=== PATIENT | female | born 1935 | race Caucasian/White ===

== ENCOUNTER 2019-11-03 12:01 | Emergency (ER) | payer MEDICARE, SELFPAY ==
--- NOTE | ~2019-11-03 | XR_ITS ---
XR elbow LT min 3V DATE: 11/03/2019 12:34 INDICATION: Left elbow pain following fall TECHNIQUE: 4 views COMPARISON: None FINDINGS: There is no elevation of the anterior or posterior fat pads to suggest elbow joint effusion . There is mild spurring of the radial head, but no definite fracture of the radial head or neck or oth er elbow fracture or dislocation. IMPRESSION: Degenerative change at the left elbow joint No joint effusion or any definite fracture Reviewed, dictated and finalized at location A.
--- NOTE | ~2019-11-03 | CT_ITS ---
EXAMINATION: CT abdomen pelvis w con DATE: 11/03/2019 13:32 INDICATION: Low abdominal pain. Diarrhea. TECHNIQUE: Computed tomography (CT) of the abdomen and pelvis was performed with 100 cc Omnipaque 350 intravenous contrast. Automated exposure control and iterative reconstruction technique were employe d. Exam dose: 454.26 mGy-cm total exam DLP. COMPARISON: 04/02/2016 CT abdomen pelvis FINDINGS: Approximately 7 mm left lower lobe pulmonary mass (series 4 image 1). No infiltrate or cons olidation at the lung bases. Cardiomegaly. No pericardial or pleural effusion. Occasional hepatic cysts, the largest situated at the medial segment of the left hepatic lobe, measur ing 12 mm. The gallbladder is unremarkable. No bile duct or pancreatic duct dilatation. No pancreatic occupying mass lesion or calcification. Normal splenic size. Normal morphology of the adrenal glands. No renal mass lesion or urinary tract calculus or hydroureteronephrosis. The urinary bladder, uterus and adnexal areas are unremarkable. There is extensive atherosclerotic calcification of the abdominal aorta; no abdominal aortic aneurysm . No intraperitoneal or retroperitoneal or pelvic mass lesion or adenopathy or ascites. There is mild thickening of the colon wall and there is fluid as well as fluid levels within the left and right colon, suggesting nonspecific colitis. No bowel obstruction is evident. Normal caliber of the small bowel. No small bowel wall thickening is detected. There is no evidence of intraperitoneal free air. Small fat-containing umbilical hernia. T10 vertebral body probable hemangioma. Moderate degenerative disc disease and mild retrolisthesis at L2-3. IMPRESSION: Mild colonic wall thickening and fluid levels, suggesting nonspecific colitis 7 mm left lower lobe pulmonary mass Cardiomegaly Occasional hepatic cysts Reviewed, dictated and finalized at Location [facility]. Reviewed, dictated and finalized at location A. IMPRESSION: Mild colonic wall thickening and fluid levels, suggesting nonspeci fic colitis 7 mm left lower lobe pulmonary mass Cardiomegaly Occasional hepatic cysts
--- NOTE | ~2019-11-03 | XR_ITS ---
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 There is diffuse osteopenia. No fracture or dislocation, periosteal reaction or bone destruction of the forearm is detected. 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
[2019-11-03 12:04] VITALS: BP 125/84; PULSE 95; RESP 20; TEMP 36.2; O2SAT 97
--- NOTE | 2019-11-03 12:25 | ED.NAVMDI ---
HPI - Nausea/Vomiting/Diarrhea General Chief complaint: Nausea/Vomiting/Diarrhea Stated complaint: diarrhea Time Seen by Provider: 11/03/19 12:12 Source: patient Mode of arrival: wheelchair Limitations: no limitations History of Present Illness HPI Narrative: This is a 83 year old female that presents to the ER for diarrhea since yesterday. Reports she has a history of celiac disease and has had diarrhea for the last couple of years. Reports worsening yesterday with multiple episodes of diarrhea. Reports like she has not been able to keep up with her intake of fluids. Reports she is having some crampy abdominal pain. Also reports yesterday she slipped in her house and hit her left elbow on a TV stand. Denies hitting her head or loss of consciousness. Reports a abrasion to the left elbow. Denies recent antibiotic use, fever, nausea, vomiting, dysuria or hematochezia. Related Data Home Medications Medication Instructions Recorded Confirmed L.acidophilus-B.lactis-B.longum 1 cap PO DAILY 10/16/19 460 mg (7.5-6-1.5 bill. cell) capsule aspirin 81 mg tablet,delayed 81 mg PO DAILY 10/16/19 release carvedilol 6.25 mg tablet 6.25 mg PO Q12H 10/16/19 cholecalciferol (vitamin D3) 125 125 mcg PO DAILY 10/16/19 mcg (5,000 unit) capsule duloxetine 30 mg capsule,delayed 30 mg PO DAILY 10/16/19 release sprinkle levothyroxine 88 mcg capsule 88 mcg PO DAILY 10/16/19 lisinopril 5 mg tablet 5 mg PO DAILY 10/16/19 lutein 25 mg-zeaxanthin 5 mg cap PO 10/16/19 capsule ktjtuxyn-pym-lscxh ac 400 tablet PO 10/16/19 mcg-calcium carb 500 mg-vit K1 20 mcg tablet nitroglycerin 0.4 mg sublingual 0.4 mg SUBLINGUAL Q5M PRN 10/16/19 tablet vitamin E (dl, acetate) 1,000 unit 1,000 unit PO DAILY 10/16/19 capsule budesonide 9 PO DAILY 11/03/19 duloxetine mg PO DAILY 11/03/19 evolocumab [Anna Dodge] See Rx Instructions .ROUTE .COMPLEX 11/03/19 Allergies Allergy/AdvReac Type Severity Reaction Status Date / Time codeine Allergy Unknown unknown Verified 11/03/19 12:20 Penicillins Allergy Unknown Unknown Verified 11/03/19 12:20 Review of Systems Review of Systems: Narrative: CONSTITUTIONAL: Denies fever GASTROINTESTINAL: Reports abdominal pain, diarrhea. Denies nausea, vomiting GENITOURINARY: Denies dysuria or hematuria. All systems reviewed & are unremarkable except as noted in HPI and below PMFSH Past Medical History Medical History (Updated 11/03/19 @ 14:22 by Sarah Wright PA-C) Heart disease History of depression History of hypertension History of hypothyroidism Stroke Social History Social History Smoking status: Former smoker Alcohol intake: never Exam Narrative: Exam Narrative: GENERAL: Elderly, well-nourished, and in no acute distress. HEAD: Normocephalic, atraumatic. EYES: EOMI. NECK: No midline spinal tenderness CHEST: Clear to auscultation. No respiratory distress. No wheezes rales or rhonchi HEART: Regular rate and rhythm. No murmur heard. Normal peripheral pulses. ABDOMEN: Soft, nondistended, normal active bowel sounds. Mild tenderness to palpation throughout the lower abdomen without guarding BACK: No midline spinal tenderness EXTREMITIES: Normal range of motion. No edema or obvious deformity. Skin tear to the left forearm SKIN: Warm, dry, no rash. NEURO: No focal deficits. Alert and oriented x3. PSYCH: Normal mood and affect RECTAL: External hemorrhoids present, nonthrombosed. Hemoccult negative Course Consultations Consultation #1: Spoke with Dr. Mcallister about patient and work-up who would like patient to continue her budesonide and to be started on Flagyl. Date: 11/03/19 Time: 14:34 Vital Signs Vital signs: Vital Signs Temperature 97.1 F L 11/03/19 12:04 Pulse Rate 95 11/03/19 12:04 Respiratory Rate 20 11/03/19 12:04 Blood Pressure 125/84 11/03/19 12:04 Pulse Oximetry 97 11/03/19 12:04
[2019-11-03] MEDS: SODIUM CHLORIDE 0.9% IV 1,000 ML 999 ML IV CONT (12:38)
[2019-11-03] MEDS: ONDANSETRON INJ 4 MG/2 ML VIAL IV PUSH (12:40)
[2019-11-03] MEDS: TETANUS,DIPHTHERIA,AC PERTUSSIS ADULT (0.5 ML) BOOSTRIX IM (12:42)
[2019-11-03 12:50] LABS: Basophils Percent Auto 0.1 % (0.2-1.2); Eosinophils Percent Auto 0.1 % (0-4.4); Hematocrit 41.3 % (37.0-47.0); Hemoglobin 13.6 g/dL (12.0-15.0); Immature Granulocyte Absolute 0.04 K/mm3 (0.00-0.031); Immature Granulocyte Percent A 0.5 % (0-0.5); Lymphocytes Absolute Auto 1.35 K/mm3 (0.9-3.2); Mean Corpuscular HGB Conc 32.9 g/dl (32-36); Mean Corpuscular Hemoglobin 28.5 pg (26-34); Mean Corpuscular Volume 86.4 fl (80-100); Mean Platelet Volume 10.3 fl (7.4-10.4); Monocytes Absolute Auto 0.6 K/mm3 (0.1-0.6); Neutrophils Absolute Auto 6.4 K/mm3 (1.3-6.7); Neutrophils Percent Auto 76.3 % (45.5-73.1); Platelet Count Result 229 k/mm3 (150-375); Red Blood Count 4.78 M/mm3 (4.2-5.4); Red Cell Distribution Width 14.4 % (11.5-14.5); White Blood Count 8.4 K/mm3 (4.5-10.0)
[2019-11-03 12:56] VITALS: BP 149/77; PULSE 76
[2019-11-03 12:57] VITALS: BP 144/76; PULSE 75
[2019-11-03 12:58] VITALS: BP 144/79; PULSE 82
[2019-11-03 13:07] LABS: Alanine Aminotransferase 18 U/L (4-35); Albumin Level 4.3 g/dL (3.5-5.1); Alkaline Phosphatase 98 U/L (38-126); Aspartate Amino Transferase 25 U/L (14-36); Bilirubin,Total 0.4 mg/dL (0.2-1.3); Blood Urea Nitrogen 16 mg/dL (7-17); Calcium 9.4 mg/dL (8.4-10.2); Carbon Dioxide 25 mmol/L (22-30); Chloride 107 mmol/L (98-107); Estimated CRCL calculation 37 ml/min; Estimated Glomerular Filt Rate 53; Glucose 117 mg/dL (65-105); Lipase 62 U/L (23-300); Potassium 3.5 mmol/L (3.4-5.0); Sodium 140 mmol/L (137-145)
[2019-11-03 13:08] LABS: Lactic Acid Reflex 1.2 mmol/L (0.7-2.1)
[2019-11-03 15:05] VITALS: BP 177/82; PULSE 82; RESP 18; O2SAT 98
== END 2019-11-03 15:20 | disposition home or self-care (01) ==
PROVIDERS: Physician Assistant; Emergency Provider Emergency Medicine; PCP Registered Nurse
DX: K52.9 Noninfective gastroenteritis and colitis, unspecified (principal); R91.1 Solitary pulmonary nodule; Z23 Encounter for immunization; K90.0 Celiac disease; E03.9 Hypothyroidism, unspecified; I11.9 Hypertensive heart disease without heart failure; Z79.82 Long term (current) use of aspirin; Z86.73 Personal history of transient ischemic attack (TIA), and cerebral infarction without residual deficits; Z87.891 Personal history of nicotine dependence
CPT/HCPCS: 36415; 73080; 73090; 74177; 80053; 83605; 83690; 85025; 90471; 90715; 96361; 96365; 96375; 99284; J0131; J2405; J7030; Q9967

== ENCOUNTER 2019-12-23 18:33 | Emergency (ER) | payer MEDICARE, SELFPAY ==
--- NOTE | ~2019-12-23 | CT_ITS ---
EXAMINATION: CT facial & cervical spine wo DATE: 12/23/2019 20:00 INDICATION: Head injury. TECHNIQUE: Computed tomography (CT) of the maxillofacial region and cervical spine was performed with out intravenous contrast. Automated exposure control and iterative reconstruction technique were empl oyed. The dose-length product was 553.94 mGy-cm. COMPARISON: None FINDINGS: MAXILLOFACIAL CT: There are likely changes of ocular lens replacement surgeries. There is mild mucosal thickening in th e ethmoid sinuses. There is rightward deviation of the nasal septum. No fracture. CERVICAL SPINE CT: There is mild scarring at the lung apices. There is 9 degrees levocurvature of cervical spine. Verteb ral body heights are normal. There is mildly decreased disc height at C2-C3 and C3-C4 and severely de creased disc height from C4 through C7-T1. The following disc levels are specifically discussed: C2-C3: There is mild left uncovertebral joint osteoarthritis. There is moderate left facet joint oste oarthritis. There is no neural foraminal stenosis. There is no central canal stenosis. C3-C4: There is moderate right and mild left uncovertebral joint osteoarthritis. There is severe bila teral facet joint osteoarthritis. There is mild left neural foraminal stenosis. There is no central c anal stenosis. C4-C5: There is severe right and moderate left uncovertebral joint osteoarthritis. There is severe bi lateral facet joint osteoarthritis. There is mild bilateral neural foraminal stenosis. There is mild central canal stenosis. C5-C6: There is severe bilateral uncovertebral joint osteoarthritis. There is no facet joint osteoart hritis. There is mild bilateral neural foraminal stenosis. There is mild central canal stenosis. C6-C7: There is severe bilateral uncovertebral joint osteoarthritis. There is mild bilateral facet monica int osteoarthritis. There is moderate right and mild left neural foraminal stenosis. There is mild ce ntral canal stenosis. C7-T1: There is mild bilateral uncovertebral joint osteoarthritis. There is mild bilateral facet join t osteoarthritis. There is no neural foraminal stenosis. There is no central canal stenosis. IMPRESSION: 1. No fracture. 2. Severe cervical spondylosis. Reviewed, dictated and finalized at location A.
--- NOTE | ~2019-12-23 | XR_ITS ---
EXAMINATION: XR hand RT 2V DATE: 12/23/2019 19:49 INDICATION: Right hand injury. TECHNIQUE: 2 views of right hand were obtained. COMPARISON: None. FINDINGS: There is radial subluxation of third and fourth distal phalanges relative to the middle pha langes. There is ulnar subluxation of second distal phalanx and fourth middle phalanx relative to the more proximal phalanges. No fracture. There is severe osteoarthritis of triscaphe joint, first carpo metacarpal joint, and third through fifth distal interphalangeal joints. There is mild to moderate os teoarthritis of the other interphalangeal joints. IMPRESSION: 1. Polyarticular osteoarthritis. Reviewed, dictated and finalized at location A.
--- NOTE | ~2019-12-23 | XR_ITS ---
EXAMINATION: [id number]_[id number]_CR DATE: 12/23/2019 19:49 INDICATION: Right rib pain. Fall. TECHNIQUE: A frontal view of the chest and 3 views of the right ribs were obtained. COMPARISON: Chest 2 views 03/28/2019, chest CT 07/04/2019 FINDINGS: There is mild atelectasis in the lower lung zones. No pleural effusion or pneumothorax. The heart size is normal. IMPRESSION: 1. No rib fracture. 2. Mild atelectasis in the lower lung zones. Reviewed, dictated and finalized at location A.
--- NOTE | ~2019-12-23 | XR_ITS ---
EXAMINATION: XR knee RT 2V DATE: 12/23/2019 19:49 INDICATION: Right knee injury. TECHNIQUE: 2 views of right knee were obtained. COMPARISON: Right knee radiographs 06/10/2013 FINDINGS: There is a medial compartment arthroplasty in near-anatomic alignment. No periprosthetic cayetano cency to suggest loosening or infection. No fracture. There is mild osteoarthritis of lateral and pat ellofemoral compartments. There is a small knee joint effusion. IMPRESSION: 1. Medial compartment arthroplasty in near-anatomic alignment. 2. Mild right knee osteoarthritis. 3. Small right knee joint effusion. Reviewed, dictated and finalized at location A.
--- NOTE | ~2019-12-23 | CT_ITS ---
EXAMINATION: CT brain wo con DATE: 12/23/2019 19:59 INDICATION: Head injury. TECHNIQUE: Computed tomography (CT) of the head was performed without intravenous contrast. The mA wa s adjusted according to patient size. Iterative reconstruction technique was employed. The dose-lengt h product was 605.33 mGy-cm. COMPARISON: None FINDINGS: There are old infarcts in the left cerebellum. There are old infarcts in the right frontal lobe. There are scattered areas of low attenuation in the cerebral white matter. There is no intracra nial hemorrhage, acute infarction, or abnormal intracranial mass lesion. The ventricles are normal in size. There are likely changes of ocular lens replacement surgeries. There is mild mucosal thickenin g in the ethmoid sinuses. There are trace mastoid effusions. IMPRESSION: 1. 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 2. Moderate nonspecific cerebral white matter disease, which likely represents chronic small vessel i schemic disease. Reviewed, dictated and finalized at location A. IMPRESSION: 1. 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 2. Moderate nonspecific cerebral white matter disease, which likely represents chronic small vessel ischemic disease.
[2019-12-23 18:36] VITALS: BP 102/77; PULSE 86; RESP 18; TEMP 37; O2SAT 98
[2019-12-23 21:30] VITALS: BP 179/92; PULSE 80; RESP 18; O2SAT 100
--- NOTE | 2019-12-23 21:44 | ED.FALL ---
HPI - Fall General Chief Complaint: Fall Stated Complaint: fall Time Seen by Provider: 12/23/19 21:35 Source: patient Mode of arrival: ambulatory Limitations: no limitations History of Present Illness HPI Narrative: This patient is an 84 year old female who presents for evaluation of right rib pain s/p fall. Patient states prior to her arrival to ER she tripped on a crack in her driveway. She states she hit her right knee and right side of her face. She denies LOC. She denies any loose teeth but she has teeth pain. She reports pain to right hand but no wrist. She states the main reason she came was due to right rib pain. She has been able to ambulate since her fall. She scraped her right knee but she denies hip pain. She takes aspirin 81 mg. complaint: fall Onset (ago): hour(s) Fall from: standing Place fall occurred: home Loss of consciousness: none Symptoms prior to fall: none Context: tripped/slipped Location of injury: face and chest Related Data Home Medications Medication Instructions Recorded Confirmed L.acidophilus-B.lactis-B.longum 1 cap PO DAILY 10/16/19 460 mg (7.5-6-1.5 bill. cell) capsule aspirin 81 mg tablet,delayed 81 mg PO DAILY 10/16/19 release carvedilol 6.25 mg tablet 6.25 mg PO Q12H 10/16/19 cholecalciferol (vitamin D3) 125 125 mcg PO DAILY 10/16/19 mcg (5,000 unit) capsule duloxetine 30 mg capsule,delayed 30 mg PO DAILY 10/16/19 release sprinkle levothyroxine 88 mcg capsule 88 mcg PO DAILY 10/16/19 lisinopril 5 mg tablet 5 mg PO DAILY 10/16/19 lutein 25 mg-zeaxanthin 5 mg cap PO 10/16/19 capsule opcyjwuu-hlm-qjlti ac 400 tablet PO 10/16/19 mcg-calcium carb 500 mg-vit K1 20 mcg tablet nitroglycerin 0.4 mg sublingual 0.4 mg SUBLINGUAL Q5M PRN 10/16/19 tablet vitamin E (dl, acetate) 450 mg 1,000 unit PO DAILY 10/16/19 (1,000 unit) capsule budesonide 9 PO DAILY 11/03/19 duloxetine mg PO DAILY 11/03/19 evolocumab [Anna Dodge] See Rx Instructions .ROUTE .COMPLEX 11/03/19 Allergies Allergy/AdvReac Type Severity Reaction Status Date / Time codeine Allergy Unknown unknown Verified 11/03/19 12:20 Penicillins Allergy Unknown Unknown Verified 11/03/19 12:20 Review of Systems Review of Systems: All systems reviewed & are unremarkable except as noted in HPI and below Constitutional: Constitutional: Denies chills and Denies fever(s) Eyes: Eyes: Denies change in vision ENT: Denies dizziness Cardiovascular: Cardiovascular: Denies rapid heart rate and Denies radiating jaw, neck or arm pain Respiratory: Respiratory: Denies cough and Denies dyspnea Gastrointestinal: Gastrointestinal: Denies abdominal pain, Denies nausea and Denies vomiting Musculoskeletal: Musculoskeletal: Denies back pain Neurologic: Denies headache(s) and Denies focal weakness [facility] Past Medical History Medical History (Updated 12/24/19 @ 00:00 by Background Daemon) Heart disease History of depression History of hypertension History of hypothyroidism Stroke Social History Social History Smoking status: Former smoker Alcohol intake: never Gender identity (if verbalized by the patient): Female Exam Const: General: no acute distress and alert Orientation/consciousness: patient oriented x3 HENMT: Head: normocephalic, atraumatic and other (abrasion to right cheek and bridge of nose) Face and sinus: face symmetric Mouth: Yes Normal oral and palatal mucosa present and Yes oropharynx normal Teeth and gingiva: other (no loose teeth) Throat: posterior oropharynx normal Eyes: Pupils: Equal, round and reactive pupils present EOM: EOMs intact bilaterally Chest: Chest palpation & inspection: tenderness (right lateral rib) Resp: Effort & Inspection: normal respiratory effort and no retractions Auscultation: not clear to auscultation bilaterally Cardio: Rate: regular rate Rhythm: regular rhyth
--- NOTE | 2019-12-23 21:45 | PC.NURSE ---
Pt right hand swollen and has some abrasions up the arm, Pt rates pain 8/10.
[2019-12-23] MEDS: ONDANSETRON HCL ODT 4 MG TABLET PO (21:50)
--- NOTE | 2019-12-23 22:13 | PC.NURSE ---
Pt refused tdap, states she was here less than a year ago and received one. notified.
[2019-12-23 22:15] VITALS: BP 179/92; PULSE 80; RESP 18; O2SAT 100
== END 2019-12-23 22:15 | disposition home or self-care (01) ==
PROVIDERS: Emergency Provider General Practice; PCP Registered Nurse
DX: R07.81 Pleurodynia (principal); S80.211A Abrasion, right knee, initial encounter; S60.221A Contusion of right hand, initial encounter; I51.9 Heart disease, unspecified; E03.9 Hypothyroidism, unspecified; Z86.73 Personal history of transient ischemic attack (TIA), and cerebral infarction without residual deficits; Z87.891 Personal history of nicotine dependence; M19.041 Primary osteoarthritis, right hand; M17.11 Unilateral primary osteoarthritis, right knee; R90.82 White matter disease, unspecified; M47.812 Spondylosis without myelopathy or radiculopathy, cervical region; W01.0XXA Fall on same level from slipping, tripping and stumbling without subsequent striking against object, initial encounter; Z79.82 Long term (current) use of aspirin
CPT/HCPCS: 70450; 70486; 71101; 72125; 73120; 73560; 99284; A9270

== ENCOUNTER 2020-08-06 12:21 | Outpatient (CLI) | payer MEDICARE, SELFPAY ==
[2020-08-06 13:17] LABS: Alanine Aminotransferase 19 U/L (4-35); Albumin Level 4.1 g/dL (3.5-5.1); Alkaline Phosphatase 95 U/L (38-126); Anion Gap 4 mmol/L (8-16); Aspartate Amino Transferase 32 U/L (14-36); Bilirubin,Total 0.6 mg/dL (0.2-1.3); Blood Urea Nitrogen 22 mg/dL (7-17); Calcium 9.2 mg/dL (8.4-10.2); Carbon Dioxide 31 mmol/L (22-30); Chloride 104 mmol/L (98-107); Cholesterol 133 mg/dL (0-200); Estimated Glomerular Filt Rate 47; Glucose 104 mg/dL (65-105); HDL Direct 49 mg/dL; Potassium 4.7 mmol/L (3.4-5.0); Sodium 139 mmol/L (137-145); Triglycerides 133 mg/dL (<150)
[2020-08-06 13:24] LABS: LDL Cholesterol Direct 65 mg/dL
== END 2020-08-06 12:22 | disposition home or self-care (01) ==
PROVIDERS: PCP Registered Nurse; Visit Provider Internal Medicine Cardiovascular Disease
DX: E78.00 Pure hypercholesterolemia, unspecified (principal); I10 Essential (primary) hypertension
CPT/HCPCS: 36415; 80053; 80061

== ENCOUNTER 2020-10-05 10:31 | Emergency (ER) | payer MEDICARE, SELFPAY ==
[2020-10-05 10:41] VITALS: BP 128/68; PULSE 96; RESP 16; TEMP 36.4; O2SAT 98
--- NOTE | 2020-10-05 10:45 | ED.URI ---
HPI - URI/Sore Throat General Chief Complaint: Upper Respiratory Infection Stated Complaint: Sore Throat Time Seen by Provider: 10/05/20 10:45 Source: patient Mode of arrival: ambulatory Limitations: no limitations History of Present Illness HPI Narrative: Mary Kate Cobina is an 84 yo female with a PMH of HTN, depression, hypothyroid, who comes with mild sore throat and not feeling well- feels tired. Called her doctor's office who would not see her because of these vague upper respiratory symptoms and wondered if Covid testing and sent her to urgent care. Patient is somewhat irritated with the situation Related Data Home Medications Medication Instructions Recorded Confirmed aspirin 81 mg tablet,delayed 81 mg PO DAILY 10/16/19 10/05/20 release carvedilol 6.25 mg tablet 6.25 mg PO Q12H 10/16/19 10/05/20 levothyroxine 88 mcg capsule 88 mcg PO DAILY 10/16/19 10/05/20 lutein 25 mg-zeaxanthin 5 mg 1 cap PO DAILY 10/16/19 10/05/20 capsule fizqzxzw-htg-ysgpz ac 400 1 tablet PO DAILY 10/16/19 10/05/20 mcg-calcium carb 500 mg-vit K1 20 mcg tablet nitroglycerin 0.4 mg sublingual 0.4 mg SUBLINGUAL Q5M PRN 10/16/19 10/05/20 tablet vitamin E (dl, acetate) 450 mg 1,000 unit PO DAILY 10/16/19 10/05/20 (1,000 unit) capsule duloxetine 60 mg PO DAILY 11/03/19 10/05/20 evolocumab [Anna Dodge] See Rx Instructions .ROUTE .COMPLEX 11/03/19 10/05/20 lisinopril 20 mg PO DAILY 10/05/20 10/05/20 Allergies Allergy/AdvReac Type Severity Reaction Status Date / Time codeine Allergy Unknown Hallucinati Verified 10/05/20 10:59 ng Penicillins Allergy Unknown Swelling Verified 10/05/20 10:59 of Lip/Tongue/Throat Review of Systems Review of Systems: Narrative: CONSTITUTIONAL: Denies fever, chills, sweats. Feels fatigued EYES: Denies visual changes, redness, discharge. ENT: Denies rhinorrhea, mild congestion, mild sore throat, otalgia. CARDIOVASCULAR: Denies chest pain, palpitations, edema. RESPIRATORY: Denies dyspnea, wheezing, cough GASTROINTESTINAL: Denies abdominal pain, nausea, vomiting, diarrhea. GENITOURINARY: Denies dysuria, hematuria, abnormal discharge SKIN: Denies rash or itching. NEUROLOGIC: Denies numbness, or focal weakness. PSYCHIATRIC: Denies anxiety or depression. [facility] Past Medical History Medical History Arthritis of knee, left Heart disease History of depression History of hypertension History of hypothyroidism Stroke Family History Family History Sibling Diabetes mellitus Heart disease Social History Social History Smoking status: Former smoker Alcohol intake: never Gender identity (if verbalized by the patient): Female Comments At time of signature, I agree with nursing past medical, surgical, social and family history. There is no relevant family history pertinent to the presenting complaint. Exam Narrative: Exam Narrative: GENERAL: This is a well-nourished, well-developed patient, in mild distress. HEAD: normocephalic, atraumatic. EYES: Sclera clear/white. Vision is grossly intact. EARS: External ears normal, Hearing aids in place, denies ear pain. Hearing grossly intact. NOSE: External nose normal without nasal discharge, nares without redness,mild rhinorrhea. THROAT: Mucous membranes moist, posterior pharynx pink, no exudate NECK: Neck supple, non-tender CARDIOVASCULAR: Regular rate and rhythm without murmurs, gallops, or rubs. RESPIRATORY: Clear to auscultation. Breath sounds equal bilaterally. No wheezes, rales, or rhonchi. GASTROINTESTINAL: Abdomen soft, SKIN: warm, intact with no suspicious lesions or rash, good texture and turgor. NEURO: awake, alert, and oriented to person, place and time. There were no obvious focal neurologic abnormalities. Steady gait EXTREMITIES: Normal range of motion.
== END 2020-10-05 11:16 | disposition home or self-care (01) ==
PROVIDERS: Emergency Provider Nurse Practitioner
DX: J06.9 Acute upper respiratory infection, unspecified (principal); Z20.822 Contact with and (suspected) exposure to COVID-19; Z87.891 Personal history of nicotine dependence; M17.12 Unilateral primary osteoarthritis, left knee; F32.9 Major depressive disorder, single episode, unspecified; I10 Essential (primary) hypertension; E03.9 Hypothyroidism, unspecified; Z86.73 Personal history of transient ischemic attack (TIA), and cerebral infarction without residual deficits; I51.9 Heart disease, unspecified; Z79.82 Long term (current) use of aspirin
CPT/HCPCS: 87426; 87804; 99213; C9803; G0463

== ENCOUNTER 2023-06-09 17:55 | Inpatient (IN) | payer MEDICARE, SELFPAY ==
--- NOTE | ~2023-06-09 | CT_ITS ---
EXAMINATION:CT diagnostic chest wo con DATE: 06/10/2023 01:42 INDICATION: Lung nodule. TECHNIQUE: Computed tomography (CT) of the chest was performed without intravenous contrast. Automate d exposure control and iterative reconstruction technique were employed. The dose-length product (DLP ) was 213.44 mGy-cm. COMPARISON: Chest CT 07/04/2019, chest single view 06/09/2023 FINDINGS: The lungs demonstrate mild atelectasis. There is a 10 mm nodule in left lower lobe. There i s peripheral septal thickening in the inferior lungs. There is mild emphysema. No pleural effusion. T he heart size is normal. There are coronary artery calcifications. No pericardial effusion. Aortic at herosclerosis is noted. There is mild chronic anterior wedging of multiple thoracic vertebral bodies. There is moderate thoracic spondylosis. IMPRESSION: 1. 10 mm nodule in left lung lower lobe, increased from 7 mm on 07/04/2019. This finding is suspicious for primary bronchogenic carcinoma. Consider CT-guided biopsy. 2. Mild emphysema and mild chronic interstitial lung disease. Reviewed, dictated and finalized at location A. SETTER IMPRESSION: 1. 10 mm nodule in left lung lower lobe, increased from 7 mm on 07/04/2019. This finding is suspicious for primary bronchogenic carcinoma. Consider CT-guided b iopsy. 2. Mild emphysema and mild chronic interstitial lung disease.
--- NOTE | ~2023-06-09 | XR_ITS ---
EXAMINATION: XR chest 1V DATE: 06/09/2023 22:21 INDICATION: COVID. Fall. TECHNIQUE: 03/28/2019 COMPARISON: Chest radiograph and CT dated 07/04/2019 FINDINGS: Hazy opacities at the bilateral lower lung zones which are likely related to bilateral paracardial fa t pads accentuated by lordotic positioning of the patient. Nodular opacity at the left lower lung zon e projecting over the anterior left sixth rib which appears larger than on the prior studies. No pulm onary edema, pleural effusion or pneumothorax. Heart size is normal. Mild S-shaped curvature of the t horacic spine. IMPRESSION: 1. Enlarging 1 cm left lower lobe nodule. Recommend further evaluation with chest CT. Reviewed, dictated and finalized at location A. OVEN PATCHER IMPRESSION: 1. Enlarging 1 cm left lower lobe nodule. Recommend further evaluation with [facility] CT.
--- NOTE | ~2023-06-09 | CT_ITS ---
EXAMINATION: CT brain wo con DATE: 06/09/2023 22:16 INDICATION: Fall with head injury and increasing weakness TECHNIQUE: Computed tomography (CT) of the head was performed without intravenous contrast. Sagittal and coronal reconstructions were performed. The mA was adjusted according to patient size. Iterative reconstruction technique was employed. The dose-length product was 605.33 mGy-cm. COMPARISON: head CT dated 12/23/2019 FINDINGS: No fracture. No acute intracranial hemorrhage, acute infarction or abnormal extra axial fluid collect ion. Unchanged small old infarcts in the right frontal lobe, bilateral cerebellar hemispheres and lef t lentiform nucleus. There is moderate scattered white matter hypoattenuation consistent with chronic small vessel ischemic disease. Symmetric prominence of the sulci consistent with mild to moderate ag e-appropriate diffuse cerebral volume loss. Ventricles are normal and symmetric. No mass/mass effect. Mucosal thickening the bilateral ethmoid sinuses. Changes of bilateral intraocular lens replacement. The orbits and mastoid air cells are normal. Intracranial calcified cerebral atherosclerosis is not ed. IMPRESSION: 1. No fracture or acute intracranial process. 2. 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 3. Age-related changes including moderate diffuse volume loss and moderate scattered white matter hyp oattenuation consistent with chronic small vessel ischemic disease. Reviewed, dictated and finalized at location A. ARCHITECT IMPRESSION: 1. No fracture or acute intracranial process. 2. Small old infarcts in the right frontal lobe, bilateral cerebellar hemispher es and left lentiform nucleus. 3. Age-related changes including moderate diffuse volume loss and moderate scat tered white matter hypoattenuation consistent with chronic small vessel ischemi c disease.
--- NOTE | ~2023-06-09 | US_ITS ---
EXAMINATION: US carotid duplex BI DATE: 06/11/2023 16:07 INDICATION: Right frontal lobe infarct. TECHNIQUE: Grayscale, color Doppler, and pulsed Doppler images of the cervical carotid arteries were obtained. The degree of vessel stenosis is placed in one of the following categories: normal, <50%, 5 0-69%, >=70% but less than near-occlusion, near-occlusion, or total occlusion. Note that percent sten osis relative to normal distal artery lumen diameter is indirectly measured from velocity measurement s as described by Prosper, et al. Radiology 2003; [id number]:[id number]. COMPARISON: None. FINDINGS: RIGHT: The right common carotid artery (CCA) peak systolic velocity (PSV) is 76 cm/s. The right internal car otid artery (ICA) PSV is 85 cm/s. The right ICA end-diastolic velocity (EDV) is 26 cm/s. The right IC A/CCA PSV ratio is 1.0. Grayscale and color Doppler images yield an estimate of <50% diameter reducti on from plaque in the ICA. There is antegrade flow in the right vertebral artery. LEFT: The left CCA PSV is 93 cm/s. The left ICA PSV is 93 cm/s. The left ICA EDV is 31 cm/s. The left ICA/C CA PSV ratio is 1.0. Grayscale and color Doppler images yield an estimate of <50% diameter reduction from plaque in the ICA. There is antegrade flow in the left vertebral artery. IMPRESSION: 1. <50% stenosis in the right internal carotid artery. 2. <50% stenosis in the left internal carotid artery. Reviewed, dictated and finalized at location A. ARS SUPERVISOR
[2023-06-09 18:11] VITALS: BP 105/64; PULSE 85; RESP 18; TEMP 36.4; O2SAT 96
--- NOTE | 2023-06-09 21:40 | ED.GENADULT ---
HPI - General Adult General Chief complaint: Weakness Stated complaint: WEAKNESS/COVID POSITIVE Time Seen by Provider: 06/09/23 21:39 Source: patient Mode of arrival: EMS Limitations: no limitations History of Present Illness HPI narrative: This is a 87-year-old female who presents to the ED with chief complaint generalized weakness x2 days. Reports she has had some URI symptoms for the last several days had a positive home COVID test 2 days ago. Reports she had an episode tonight trying to transition from bed to a bedside commode and felt too weak in the legs causing her to fall to the ground. Denies head injury or LOC. Denies any neurologic symptoms. Denies neck pain, cough, shortness of breath, chest pain. Related Data Home Medications Medication Instructions Recorded Confirmed aspirin 81 mg tablet,delayed 81 mg PO DAILY 10/16/19 06/10/23 release (Adult Aspirin Regimen) carvedilol 6.25 mg tablet 6.25 mg PO Q12H 10/16/19 06/10/23 levothyroxine 88 mcg capsule 88 mcg PO DAILY 10/16/19 06/10/23 duloxetine 60 mg capsule,delayed 60 mg PO DAILY 11/03/19 06/10/23 release evolocumab 140 mg/mL subcutaneous See Rx Instructions .Route .COMPLEX 11/03/19 06/10/23 pen injector (Anna Dodge) amlodipine 5 mg tablet 5 mg PO DAILY 10/04/22 06/10/23 donepezil 5 mg tablet 5 mg PO QHS 10/04/22 06/10/23 albuterol sulfate 90 mcg/actuation 2 puff inhalation Q6H PRN 06/10/23 06/10/23 aerosol inhaler Shortness Of Breath Or Wheezing terbinafine HCl 250 mg tablet 250 mg PO DAILY 06/10/23 06/10/23 vitamins A,C,L-ruio-qcuebm 2,148 1 tablet PO BID 06/10/23 06/10/23 mcg-113 mg-45 mg-17.4 mg tablet (PreserVision AREDS) Allergies Allergy/AdvReac Type Severity Reaction Status Date / Time codeine Allergy Unknown Hallucinati Verified 10/04/22 13:28 ng Penicillins Allergy Unknown Swelling Verified 10/04/22 13:28 of Lip/Tongue/Throat Review of Systems Review of Systems: All systems as dictated in HPI [facility] Past Medical History Medical History (Updated 06/10/23 @ 03:01 by Moe Messina PA-C) Arthritis of knee, left COVID-19 Heart disease History of depression History of hypertension History of hypothyroidism Stroke Surgical History Surgical History (Updated 10/04/22 @ 13:42 by Arnol Jasso MD) Status post right partial knee replacement Family History Family History Sibling Diabetes mellitus Heart disease Social History Social History Smoking status: Former smoker Alcohol intake: never Substance use: never Do You Feel Safe in your Home?: Yes Lack of Transportation: No Lack of Food: Never True Current Housing: I Have Housing Concerned About Future Housing: No Difficulty Paying Gas/Electric Bills: No Difficulty Paying for Meds: No Currently Unemployed: No Education: Grade School Difficulty w/ Childcare or Family Care: No Living arrangements: with family Gender identity (if verbalized by the patient): Female Spiritual care concerns: No Exam Narrative: GENERAL: Well-appearing, well-nourished, and in no acute distress. HEAD: Normocephalic, atraumatic. EYES: PERRLA and EOMI. ENT: Nares clear, no rhinorrhea or epistaxis. Mucous membranes moist. Oropharynx without tonsillar hypertrophy exudate or other lesions. NECK: Supple. No adenopathy or masses. CHEST: No respiratory distress. Clear to auscultation. No wheezes rales or rhonchi HEART: Regular rate and rhythm. No murmur heard. Normal peripheral pulses. ABDOMEN: Soft, nontender, nondistended, normal active bowel sounds. MSK: Normal range of motion. No edema. SKIN: Warm, dry, no rash. NEURO: Alert and oriented x3. No focal deficits. PSYCH: Normal mood and affect. Course Vital Signs Vital signs: Vital Signs Temperature 97.6 F 06/09/23 18:11 Pulse Rate 85
--- NOTE | 2023-06-09 21:59 | ECG_ITS ---
Measurements Intervals [place] Rate: 88 P: -27 [place]: 151 QRS: 35 QRSD: 80 T: 52 QT: 345 QTc: 418 Interpretive Statements SINUS RHYTHM WITH OCCASIONAL ECTOPIC PREMATURE COMPLEXES COMPARED TO ECG 03/28/2019 12:45:33 NO SIGNIFICANT CHANGES Electronically Signed On 06-11-2023 14:22:33 PHOTOENGRAVING RETOUCHER by Anton Christine M.D.
[2023-06-09 22:31] LABS: Basophils Absolute Auto 0.1 K/mm3 (0.0-0.1); Basophils Percent Auto 0.7 % (0.2-1.2); Eosinophils Absolute Auto 0.2 K/mm3 (0-0.3); Eosinophils Percent Auto 2.5 % (0-4.4); Hematocrit 43.3 % (37.0-47.0); Hemoglobin 13.7 g/dL (12.0-15.0); Immature Granulocyte Absolute 0.05 K/mm3 (0.00-0.031); Immature Granulocyte Percent A 0.7 % (0-0.5); Lymphocytes Absolute Auto 0.91 K/mm3 (0.9-3.2); Lymphocytes Percent Auto 12.7 % (18.3-44.2); Mean Corpuscular HGB Conc 31.6 g/dl (32-36); Mean Corpuscular Hemoglobin 28.7 pg (26-34); Mean Corpuscular Volume 90.8 fl (80-100); Mean Platelet Volume 9.6 fl (7.4-10.4); Monocytes Absolute Auto 1.2 K/mm3 (0.1-0.6); Monocytes Percent Auto 16.5 % (2.6-8.5); Neutrophils Absolute Auto 4.8 K/mm3 (1.3-6.7); Neutrophils Percent Auto 66.9 % (45.5-73.1); Platelet Count Result 180 k/mm3 (150-375); Red Blood Count 4.77 M/mm3 (4.2-5.4); Red Cell Distribution Width 14.7 % (11.5-14.5); White Blood Count 7.2 K/mm3 (4.5-10.0)
[2023-06-09 22:46] LABS: Alanine Aminotransferase 16 U/L (6-35); Albumin Level 4.3 g/dL (3.5-5.1); Alkaline Phosphatase 119 U/L (38-126); Anion Gap 11 mmol/L (8-16); Aspartate Amino Transferase 28 U/L (14-36); Bilirubin,Total 0.7 mg/dL (0.2-1.3); Blood Urea Nitrogen 19 mg/dL (7-17); Carbon Dioxide 25 mmol/L (22-30); Chloride 95 mmol/L (98-107); Estimated CRCL calculation 25 ml/min; Estimated Glomerular Filt Rate 42; Glucose 108 mg/dL (65-110); Potassium 3.8 mmol/L (3.4-5.0); Sodium 131 mmol/L (137-145)
[2023-06-09 23:38] LABS: Add Urine Microscopic? YES; Appearance Urine Cloudy (Clear); Bacteria Urine None Seen /hpf; Bilirubin Urine 2+ (Negative); Blood Urine Negative (Negative); Color Urine Dark Yellow (Yellow); Glucose Urine UA Negative (Negative); Ketones Urine Trace mg/dL (Negative); Leukocyte Esterase Ur Negative LEU/UL (Negative); Need Manual Microscopic Reviewed; Nitrate Urine Negative (Negative); Non Pathogenic Casts >20; Protein Urine 1+ mg/dL (Negative); Specific Grav Ur 1.028 (1.001-1.035); Squamous Epithelial Cell Urine Few /hpf (Few); WBC Urine 0-5 /hpf
[2023-06-10 00:09] LABS: Influenza A QL RT-PCR Negative (Negative); Influenza B QL RT-PCR Negative (Negative); RSV RNA, RT-PCR Negative (Negative); SARS-CoV-2 RNA PCR Positive (Negative)
--- NOTE | 2023-06-10 00:37 | PM.IMHP ---
H&P: HPI History of Present Illness Date/Time: 06/10/23 00:37 Chief Complaint: fall at home x2 Narrative: 87F w/ PMH OA, depression, celiac disease, hypothyroidism, depression, CKD stage 3b presents with weakness and falls at home. She is accompanied by granddaughter and son. Review of Systems Review of Systems: All systems reviewed & are unremarkable except as noted in HPI and below (HPI) [facility] Past Medical History Medical History (Updated 06/10/23 @ 00:39 by Mónica Koenig MD) Arthritis of knee, left COVID-19 Heart disease History of depression History of hypertension History of hypothyroidism Stroke Surgical History Surgical History (Updated 10/04/22 @ 13:42 by Arnol Jasso MD) Status post right partial knee replacement Family History Family History Sibling Diabetes mellitus Heart disease Social History Social History Smoking status: Former smoker Alcohol intake: never Living arrangements: with family Gender identity (if verbalized by the patient): Female Meds Home Medications and Allergies Home Medications Medication Instructions Recorded Confirmed Type aspirin 81 mg tablet,delayed 81 mg PO DAILY 10/16/19 10/04/22 History release (Adult Aspirin Regimen) carvedilol 6.25 mg tablet 6.25 mg PO Q12H 10/16/19 10/04/22 History levothyroxine 88 mcg capsule 88 mcg PO DAILY 10/16/19 10/04/22 History duloxetine 60 mg capsule,delayed 60 mg PO DAILY 11/03/19 10/04/22 History release evolocumab 140 mg/mL subcutaneous See Rx Instructions .Route .COMPLEX 11/03/19 10/04/22 History pen injector (Anna Dodge) amlodipine 5 mg tablet 5 mg PO DAILY 10/04/22 10/04/22 History donepezil 5 mg tablet 5 mg PO QHS 10/04/22 10/04/22 History Allergies Allergy/AdvReac Type Severity Reaction Status Date / Time codeine Allergy Unknown Hallucinati Verified 10/04/22 13:28 ng Penicillins Allergy Unknown Swelling Verified 10/04/22 13:28 of Lip/Tongue/Throat Vital Signs Vital Signs - 24 hr 06/09/23 18:11 Temperature 97.6 F Pulse Rate 85 Respiratory Rate 18 Blood Pressure 105/64 Pulse Oximetry 96 Oxygen Delivery Room Air Exam Const: General: comfortable and no acute distress Eyes: Pupils: Equal, round and reactive pupils present Neck: Neck: supple Resp: Effort & Inspection: normal respiratory effort Auscultation: clear to auscultation bilaterally, no crackles, no rales and no rhonchi Cardio: Rate: regular rate Rhythm: regular rhythm Heart sounds: no gallops, no murmurs and no rubs GI: GI Palp: Yes Soft to palpation Neuro: Speech: normal speech Motor exam (neuro): 5/5 motor strength present throughout Extrem: General: no edema H&P: Results Labs Labs: Short CBC 06/09/23 Range/Units 22:24 WBC 7.2 (4.5-10.0) K/mm3 Hgb 13.7 (12.0-15.0) g/dL Hct 43.3 (37.0-47.0) % Plt Count 180 (150-375) k/mm3 BMP 06/09/23 22:24 Sodium 131 L Potassium 3.8 Chloride 95 L Carbon Dioxide 25 BUN 19 H Creatinine 1.20 H Glucose 108 Calcium 9.0 Liver Function 06/09/23 Range/Units 22:24 Total Bilirubin 0.7 (0.2-1.3) mg/dL AST 28 (14-36) U/L ALT 16 (6-35) U/L Alkaline Phosphatase 119 (38-126) U/L Albumin 4.3 (3.5-5.1) g/dL Urine 06/09/23 Range/Units 22:57 Urine Color Dark yellow (Yellow) Urine Appearance Cloudy H (Clear) Urine pH 5.0 (5.0-9.0) Ur Specific [place] 1.028 (1.001-1.035) Urine Protein 1+ H (Negative) mg/dL Urine Glucose (UA) Negative (Negative) mg/dL Assessment and Plan Assessment and plan (1) COVID-19: Code(s): U07.1 - COVID-19 Status: Acute (2) Weakness: Code(s): R53.1 - Weakness Status: Acute Plan 87F w/ PMH OA, depression, celiac disease, hypothyroidism, asthma, depression, CKD stage 3b presents with weakn
[2023-06-10] MEDS: REMDESIVIR 200 MG/NS 250 ML 200 MG/250 ML BAG 250 MG IVPB (01:21)
[2023-06-10 01:22] VITALS: BP 110/64; PULSE 88; RESP 18; O2SAT 97
--- NOTE | 2023-06-10 02:01 | ADMGEN ---
This patient, Mary Kate Cobian, was admitted to Medical Room 342-01. Patient/family oriented to hospital policies and general routines including ID bracelet, bed and alarms, visiting hours, pain management, procedures, bathroom and other care routines, personal items, smoking policy, room service/diet, and visiting hours. Information on how to activate the Rapid Response Team has been discussed. Patient/Family are encouraged to report perceived risks to care and to ask questions if they do not understand what they are told or what they should do.
[2023-06-10 02:07] VITALS: BP 130/71; PULSE 92; RESP 20; TEMP 36.5; O2SAT 95
[2023-06-10] MEDS: ACETAMINOPHEN 325 MG TABLET 650 MG PO ×2 (02:30→18:20)
[2023-06-10] MEDS: SODIUM CHLORIDE 0.9% IV 1,000 ML 75 ML IV CONT ×2 (02:31→17:01)
[2023-06-10 05:59] LABS: Basophils Percent Auto 0.7 % (0.2-1.2); Eosinophils Absolute Auto 0.1 K/mm3 (0-0.3); Eosinophils Percent Auto 2.5 % (0-4.4); Hematocrit 39.1 % (37.0-47.0); Hemoglobin 12.4 g/dL (12.0-15.0); Immature Granulocyte Absolute 0.03 K/mm3 (0.00-0.031); Immature Granulocyte Percent A 0.5 % (0-0.5); Lymphocytes Absolute Auto 1.07 K/mm3 (0.9-3.2); Lymphocytes Percent Auto 19.1 % (18.3-44.2); Mean Corpuscular HGB Conc 31.7 g/dl (32-36); Mean Corpuscular Hemoglobin 29.2 pg (26-34); Mean Platelet Volume 10.5 fl (7.4-10.4); Monocytes Absolute Auto 1.2 K/mm3 (0.1-0.6); Monocytes Percent Auto 21.3 % (2.6-8.5); Neutrophils Absolute Auto 3.1 K/mm3 (1.3-6.7); Neutrophils Percent Auto 55.9 % (45.5-73.1); Platelet Count Result 146 k/mm3 (150-375); Red Blood Count 4.25 M/mm3 (4.2-5.4); Red Cell Distribution Width 14.7 % (11.5-14.5); White Blood Count 5.6 K/mm3 (4.5-10.0)
[2023-06-10 06:00] VITALS: BP 137/70; PULSE 80; RESP 22; TEMP 36.5; O2SAT 94
[2023-06-10 06:11] LABS: Alanine Aminotransferase 13 U/L (6-35); Albumin Level 3.6 g/dL (3.5-5.1); Alkaline Phosphatase 100 U/L (38-126); Anion Gap 13 mmol/L (8-16); Aspartate Amino Transferase 22 U/L (14-36); Bilirubin,Total 0.4 mg/dL (0.2-1.3); Blood Urea Nitrogen 18 mg/dL (7-17); Calcium 8.3 mg/dL (8.4-10.2); Carbon Dioxide 19 mmol/L (22-30); Chloride 99 mmol/L (98-107); Estimated CRCL calculation 28 ml/min; Estimated Glomerular Filt Rate 47; Glucose 102 mg/dL (65-110); Magnesium 2.2 mg/dL (1.6-2.3); Potassium 3.6 mmol/L (3.4-5.0); Sodium 131 mmol/L (137-145)
[2023-06-10 07:10] LABS: Procalcitonin 0.2 ng/mL
[2023-06-10] MEDS: ENOXAPARIN 30 MG/0.3 ML SYRINGE SUB-Q (10:11)
[2023-06-10 14:00] VITALS: BP 143/72; PULSE 88; RESP 16; TEMP 37.4; O2SAT 94
[2023-06-10 20:18] VITALS: BP 144/80; PULSE 91; RESP 20; TEMP 36.7; O2SAT 94
[2023-06-10] MEDS: REMDESIVIR 100 MG/NS 250 ML 100 MG/250 ML BAG 250 MG IVPB (21:50)
[2023-06-10] MEDS: FLUTICASONE PROPIONATE 0.05% NA SPR 16 GM BTL (*BKC) 1 SPRAY NASAL (21:50)
[2023-06-11 05:57] LABS: Basophils Percent Auto 0.4 % (0.2-1.2); Eosinophils Absolute Auto 0.1 K/mm3 (0-0.3); Eosinophils Percent Auto 2.6 % (0-4.4); Hematocrit 38.4 % (37.0-47.0); Hemoglobin 12.4 g/dL (12.0-15.0); Immature Granulocyte Absolute 0.02 K/mm3 (0.00-0.031); Immature Granulocyte Percent A 0.4 % (0-0.5); Immature Platelet Fraction Pct 3.8 % (0.9-11.2); Lymphocytes Absolute Auto 0.88 K/mm3 (0.9-3.2); Lymphocytes Percent Auto 19.3 % (18.3-44.2); Mean Corpuscular HGB Conc 32.3 g/dl (32-36); Mean Corpuscular Hemoglobin 29.2 pg (26-34); Mean Corpuscular Volume 90.6 fl (80-100); Mean Platelet Volume 10.7 fl (7.4-10.4); Monocytes Absolute Auto 1.1 K/mm3 (0.1-0.6); Neutrophils Absolute Auto 2.4 K/mm3 (1.3-6.7); Neutrophils Percent Auto 53.3 % (45.5-73.1); Platelet Count Result 126 k/mm3 (150-375); Red Blood Count 4.24 M/mm3 (4.2-5.4); Red Cell Distribution Width 14.7 % (11.5-14.5); White Blood Count 4.6 K/mm3 (4.5-10.0)
[2023-06-11] MEDS: SODIUM CHLORIDE 0.9% IV 1,000 ML 75 ML IV CONT ×2 (06:20→20:48)
[2023-06-11 06:22] VITALS: BP 177/93; PULSE 88; RESP 18; TEMP 36.8; O2SAT 94
[2023-06-11 06:23] LABS: Alanine Aminotransferase 13 U/L (6-35); Albumin Level 3.6 g/dL (3.5-5.1); Alkaline Phosphatase 103 U/L (38-126); Anion Gap 8 mmol/L (8-16); Aspartate Amino Transferase 24 U/L (14-36); Bilirubin,Total 0.4 mg/dL (0.2-1.3); Blood Urea Nitrogen 16 mg/dL (7-17); Calcium 8.2 mg/dL (8.4-10.2); Carbon Dioxide 23 mmol/L (22-30); Chloride 103 mmol/L (98-107); Estimated CRCL calculation 37 ml/min; Estimated Glomerular Filt Rate > 60; Glucose 92 mg/dL (65-110); Potassium 3.7 mmol/L (3.4-5.0); Sodium 134 mmol/L (137-145)
--- NOTE | 2023-06-11 09:09 | PM.IMPN ---
Progress Note: A&P Assessment and Plan (1) COVID-19: Code(s): U07.1 - COVID-19 Status: Acute Assessment and Plan: 06/11/23: Continue with Remdesivir (2) Weakness: Code(s): R53.1 - Weakness Status: Acute Assessment and Plan: 06/11/23: PT and OT ordered Carotid dopplers obtained today, pending Time Spent With Patient Time with patient: Greater than 35 minutes Subjective Date/time seen: 06/11/23 09:09 Interval history: 06/10/23: Labs showing Na+ 131, carbon dioxide 19, BUN 18, Creatinine 1.10, eGFR 47, procal 0.2. CBC was unremarkable. UA shown 1+ protein, trace ketones, 2+ bili, 3-5 urine RBC's. No pending cultures.? CT of the head was negative for any acute intracranial process, shown old infarcts and age related changes. CXR shown an enlarging 1cm left lower lobe nodule. Chest CT shown 10mm module in the left lower lobe which is increased from previous CT, mild emphysema. May consider CT guided biopsy while here. Patient tested positive for COVID in the ED and was started on Remdesivir. Since she is not on oxygen, we will hold off on Dexamethasone.? Patient complaining of right ear pain. On examination Tympanic membrane opaque in color, bulging with fluid. I went ahead and put in for Flonase BID to help open her eustachian tubes.? Lungs clear to auscultation, no adventitious lungs sounds noted.? She denies any fever, chills, nausea, vomiting, diarrhea, abdominal pain, chest pain. She does endorse SOB and pleuritic pain. We will recheck her labs in the morning including liver enzymes now that she has had a few doses of the Remdesivir. 06/11/23: On examination today patient is alert and oriented x3, lying in the bed. She denies any new complaints today. Labs today are essentially unremarkable except Na+ 134, liver enzymes are normal. Continue with Remdesivir. Review of Systems Review of Systems: All systems reviewed & are unremarkable except as noted in HPI and below (HPI) Constitutional: Constitutional: Reports as per HPI and Reports no additional constitutional complaints Eyes: Eyes: Reports as per HPI and Reports no additional eye complaints ENT: Reports system reviewed and no additional complaints, except as documented and Reports as per HPI Cardiovascular: Cardiovascular: Reports as per HPI and Reports no additional cardiovascular complaints Respiratory: Respiratory: Reports as per HPI and Reports no additional respiratory complaints Gastrointestinal: Gastrointestinal: Reports as per HPI and Reports no additional gastrointestinal complaints Genitourinary: Genitourinary: Reports no additional female genitourinary complaints and Reports as per HPI Musculoskeletal: Musculoskeletal: Reports no additional musculoskeletal complaints and Reports as per HPI Integumentary/Breasts: Skin/Breast: Reports system reviewed and no additional complaints, except as docu and Reports as per HPI Neurologic: Reports system reviewed and no additional complaints, except as documented and Reports as per HPI Psychiatric: Psychiatric: Reports no additional psychiatric complaints and Reports as per HPI Exam Narrative: General: In no acute distress, well nourished Head: atraumatic, no encephalopathy Eyes: EOMI, PERRLA, sclera clear ENT: moist mucous membranes, nasal passages clear Neck: supple, no JVD, no adenopathy, trachea midline Cardiac: Normal S1 and S2. No murmur, gallops or friction rubs, peripheral pulses intact. Respiratory: Lungs clear to auscultation, no adventitious lung sounds Gastrointestinal: soft, non-distended, non-tender, normoactive bowel sounds. : voiding without difficulty. Extremities: moves all extremities well, no edema, good ROM, strength 5/5 Skin: clean, dry, intact. No wounds or lesions. Neuro: Alert and oriented x4, cranial nerves intact, no neuro deficits. Psych: normal mood, normal affect, interactive Objective Data Vital Signs Vital Signs: Vital Signs - 24 hr
[2023-06-11] MEDS: ENOXAPARIN 30 MG/0.3 ML SYRINGE SUB-Q (09:58)
[2023-06-11] MEDS: FLUTICASONE PROPIONATE 0.05% NA SPR 16 GM BTL (*BKC) 1 SPRAY NASAL ×2 (09:58→20:48)
[2023-06-11 14:00] VITALS: BP 149/88; PULSE 85; RESP 22; TEMP 36.6; O2SAT 97
[2023-06-11] MEDS: ACETAMINOPHEN 325 MG TABLET 650 MG PO (15:00)
[2023-06-11] MEDS: DONEPEZIL HCL 5 MG TABLET PO (20:47)
[2023-06-11] MEDS: REMDESIVIR 100 MG/NS 250 ML 100 MG/250 ML BAG 250 MG IVPB (20:47)
[2023-06-11 22:00] VITALS: BP 181/99; PULSE 80; RESP 16; TEMP 36.9; O2SAT 95
[2023-06-11 22:29] VITALS: PULSE 80
[2023-06-11] MEDS: METOPROLOL TARTRATE INJ 5 MG/5 ML VIAL IV PUSH (22:29)
[2023-06-12] MEDS: LEVOTHYROXINE SODIUM 88 MCG TABLET PO (05:13)
[2023-06-12 05:50] LABS: Basophils Percent Auto 0.4 % (0.2-1.2); Eosinophils Absolute Auto 0.3 K/mm3 (0-0.3); Hematocrit 39.4 % (37.0-47.0); Hemoglobin 12.5 g/dL (12.0-15.0); Immature Granulocyte Absolute 0.02 K/mm3 (0.00-0.031); Immature Granulocyte Percent A 0.4 % (0-0.5); Immature Platelet Fraction Pct 4.6 % (0.9-11.2); Lymphocytes Absolute Auto 1.35 K/mm3 (0.9-3.2); Lymphocytes Percent Auto 26.7 % (18.3-44.2); Mean Corpuscular HGB Conc 31.7 g/dl (32-36); Mean Corpuscular Hemoglobin 28.8 pg (26-34); Mean Corpuscular Volume 90.8 fl (80-100); Mean Platelet Volume 10.4 fl (7.4-10.4); Monocytes Percent Auto 18.8 % (2.6-8.5); Neutrophils Absolute Auto 2.5 K/mm3 (1.3-6.7); Neutrophils Percent Auto 48.7 % (45.5-73.1); Platelet Count Result 136 k/mm3 (150-375); Red Blood Count 4.34 M/mm3 (4.2-5.4); Red Cell Distribution Width 14.6 % (11.5-14.5); White Blood Count 5.1 K/mm3 (4.5-10.0)
[2023-06-12 05:55] LABS: Alanine Aminotransferase 15 U/L (6-35); Albumin Level 3.5 g/dL (3.5-5.1); Alkaline Phosphatase 108 U/L (38-126); Anion Gap 6 mmol/L (8-16); Aspartate Amino Transferase 25 U/L (14-36); Bilirubin,Total 0.4 mg/dL (0.2-1.3); Blood Urea Nitrogen 14 mg/dL (7-17); Calcium 8.6 mg/dL (8.4-10.2); Carbon Dioxide 26 mmol/L (22-30); Chloride 104 mmol/L (98-107); Estimated CRCL calculation 37 ml/min; Estimated Glomerular Filt Rate > 60; Glucose 95 mg/dL (65-110); Potassium 3.7 mmol/L (3.4-5.0); Sodium 136 mmol/L (137-145)
[2023-06-12 06:00] VITALS: BP 152/99; PULSE 88; RESP 18; TEMP 36.6; O2SAT 95
[2023-06-12] MEDS: ENOXAPARIN 40 MG/0.4 ML SYRINGE SUB-Q (09:21)
[2023-06-12] MEDS: ASPIRIN 81 MG ENTERIC TABLET PO (09:21)
[2023-06-12] MEDS: DULoxetine HCL 60 MG CAPSULE.DR PO (09:21)
[2023-06-12] MEDS: amLODIPine BESYLATE 5 MG TABLET PO (09:21)
[2023-06-12] MEDS: FLUTICASONE PROPIONATE 0.05% NA SPR 16 GM BTL (*BKC) 1 SPRAY NASAL ×2 (09:22→20:20)
[2023-06-12 14:29] VITALS: PULSE 86; RESP 18
[2023-06-12] MEDS: ALBUTEROL SULFATE (*SP) AEROSOL 1 PUFF 2 PUFF INHALATION (14:29)
[2023-06-12 15:19] VITALS: BP 151/98; PULSE 98; RESP 18; TEMP 36.1; O2SAT 95
--- NOTE | 2023-06-12 16:44 | PM.IMPN ---
Progress Note: A&P Assessment and Plan (1) COVID-19: Code(s): U07.1 - COVID-19 Status: Acute Assessment and Plan: 06/11/23: Continue with Remdesivir 06/12/23: No change to current treatment plan Possible discharge tomorrow (2) Weakness: Code(s): R53.1 - Weakness Status: Acute Assessment and Plan: 06/11/23: PT and OT ordered Carotid dopplers obtained today, pending 06/12/23: continue PT and OT Carotid dopplers showing less than 50% stenosis in bilateral carotid arteries. Time Spent With Patient Time with patient: 25 - 35 minutes Subjective Date/time seen: 06/12/23 16:44 Interval history: 06/10/23: Labs showing Na+ 131, carbon dioxide 19, BUN 18, Creatinine 1.10, eGFR 47, procal 0.2. CBC was unremarkable. UA shown 1+ protein, trace ketones, 2+ bili, 3-5 urine RBC's. No pending cultures.? CT of the head was negative for any acute intracranial process, shown old infarcts and age related changes. CXR shown an enlarging 1cm left lower lobe nodule. Chest CT shown 10mm module in the left lower lobe which is increased from previous CT, mild emphysema. May consider CT guided biopsy while here. Patient tested positive for COVID in the ED and was started on Remdesivir. Since she is not on oxygen, we will hold off on Dexamethasone.? Patient complaining of right ear pain. On examination Tympanic membrane opaque in color, bulging with fluid. I went ahead and put in for Flonase BID to help open her eustachian tubes.? Lungs clear to auscultation, no adventitious lungs sounds noted.? She denies any fever, chills, nausea, vomiting, diarrhea, abdominal pain, chest pain. She does endorse SOB and pleuritic pain. We will recheck her labs in the morning including liver enzymes now that she has had a few doses of the Remdesivir. 06/11/23: On examination today patient is alert and oriented x3, lying in the bed. She denies any new complaints today. Labs today are essentially unremarkable except Na+ 134, liver enzymes are normal. Continue with Remdesivir. 06/12/23: On examination today patient is alert and oriented x3, lying in the bed. Labs today essentially unremarkable other than Na+ level of 136. Carotid doppler study showing less than 50% stenosis in bilateral carotid arteries. Will continue with PT and OT. Review of Systems Review of Systems: All systems reviewed & are unremarkable except as noted in HPI and below (HPI) Constitutional: Constitutional: Reports as per HPI and Reports no additional constitutional complaints Eyes: Eyes: Reports as per HPI and Reports no additional eye complaints ENT: Reports system reviewed and no additional complaints, except as documented and Reports as per HPI Cardiovascular: Cardiovascular: Reports as per HPI and Reports no additional cardiovascular complaints Respiratory: Respiratory: Reports as per HPI and Reports no additional respiratory complaints Gastrointestinal: Gastrointestinal: Reports as per HPI and Reports no additional gastrointestinal complaints Genitourinary: Genitourinary: Reports no additional female genitourinary complaints and Reports as per HPI Musculoskeletal: Musculoskeletal: Reports no additional musculoskeletal complaints and Reports as per HPI Integumentary/Breasts: Skin/Breast: Reports system reviewed and no additional complaints, except as docu and Reports as per HPI Neurologic: Reports system reviewed and no additional complaints, except as documented and Reports as per HPI Psychiatric: Psychiatric: Reports no additional psychiatric complaints and Reports as per HPI Exam Narrative: General: In no acute distress, well nourished Head: atraumatic, no encephalopathy Eyes: EOMI, PERRLA, sclera clear ENT: moist mucous membranes, nasal passages clear Neck: supple, no JVD, no adenopathy, trachea midline Cardiac: Normal S1 and S2. No murmur, gallops or friction rubs, peripheral pulses intact. Respiratory: Lungs clear to auscultation, no ad
[2023-06-12] MEDS: REMDESIVIR 100 MG/NS 250 ML 100 MG/250 ML BAG 250 MG IVPB (20:18)
[2023-06-12] MEDS: SODIUM CHLORIDE 0.9% IV 1,000 ML 75 ML IV CONT (20:19)
[2023-06-12] MEDS: DONEPEZIL HCL 5 MG TABLET PO (20:20)
[2023-06-12 22:34] VITALS: BP 139/60; PULSE 84; RESP 18; TEMP 36.2; O2SAT 97
[2023-06-13 05:49] LABS: Basophils Percent Auto 0.6 % (0.2-1.2); Eosinophils Absolute Auto 0.4 K/mm3 (0-0.3); Eosinophils Percent Auto 5.7 % (0-4.4); Hematocrit 39.7 % (37.0-47.0); Hemoglobin 12.9 g/dL (12.0-15.0); Immature Granulocyte Absolute 0.03 K/mm3 (0.00-0.031); Immature Granulocyte Percent A 0.5 % (0-0.5); Lymphocytes Absolute Auto 1.62 K/mm3 (0.9-3.2); Lymphocytes Percent Auto 25.4 % (18.3-44.2); Mean Corpuscular HGB Conc 32.5 g/dl (32-36); Mean Corpuscular Hemoglobin 28.9 pg (26-34); Mean Corpuscular Volume 88.8 fl (80-100); Mean Platelet Volume 10.3 fl (7.4-10.4); Monocytes Absolute Auto 0.9 K/mm3 (0.1-0.6); Monocytes Percent Auto 13.3 % (2.6-8.5); Neutrophils Absolute Auto 3.5 K/mm3 (1.3-6.7); Neutrophils Percent Auto 54.5 % (45.5-73.1); Platelet Count Result 144 k/mm3 (150-375); Red Blood Count 4.47 M/mm3 (4.2-5.4); Red Cell Distribution Width 14.5 % (11.5-14.5); White Blood Count 6.4 K/mm3 (4.5-10.0)
[2023-06-13 06:04] LABS: Alanine Aminotransferase 14 U/L (6-35); Albumin Level 3.4 g/dL (3.5-5.1); Alkaline Phosphatase 107 U/L (38-126); Anion Gap 10 mmol/L (8-16); Aspartate Amino Transferase 28 U/L (14-36); Bilirubin,Total 0.4 mg/dL (0.2-1.3); Blood Urea Nitrogen 14 mg/dL (7-17); Calcium 8.4 mg/dL (8.4-10.2); Carbon Dioxide 25 mmol/L (22-30); Chloride 102 mmol/L (98-107); Estimated CRCL calculation 37 ml/min; Estimated Glomerular Filt Rate > 60; Glucose 96 mg/dL (65-110); Potassium 3.5 mmol/L (3.4-5.0); Sodium 137 mmol/L (137-145)
[2023-06-13 06:15] VITALS: BP 154/97; PULSE 82; RESP 18; TEMP 36.5; O2SAT 96
[2023-06-13] MEDS: LEVOTHYROXINE SODIUM 88 MCG TABLET PO (06:33)
[2023-06-13] MEDS: ASPIRIN 81 MG ENTERIC TABLET PO (09:41)
[2023-06-13] MEDS: amLODIPine BESYLATE 5 MG TABLET PO (09:41)
[2023-06-13] MEDS: DULoxetine HCL 60 MG CAPSULE.DR PO (09:41)
[2023-06-13] MEDS: ENOXAPARIN 40 MG/0.4 ML SYRINGE SUB-Q (09:42)
--- NOTE | 2023-06-13 13:13 | PM.IMPN ---
Progress Note: A&P Assessment and Plan (1) COVID-19: Code(s): U07.1 - COVID-19 Status: Acute Assessment and Plan: Continue Remdesivir Supportive care as needed (2) Weakness: Code(s): R53.1 - Weakness Status: Acute Assessment and Plan: Non-focal Generalized weakness present PT evaluated and pt requires cues for safety and Wheeled walker (3) Confusion: Code(s): R41.0 - Disorientation, unspecified Status: Acute Assessment and Plan: A&O to self today and acutely states, I am confused. Concern for safety given state of confusion. VSS Labs improving and unremarkable Fall precautions. Recheck UA to ensure that she is not developing another infection. Time Spent With Patient Time with patient: 15 - 25 minutes Subjective Date/time seen: 06/13/23 0940 Interval history: This 87 year old female pt with PMH of prior CVA, chronic arthritis, Depression, HTN and Hypothyroidism who is currently COVID + and was admitted on 06/10/23 for repeated falls at home over the past two days and no one at home to care for her was examined at the bedside today in interval assessment. The pt appeared anxious and confused upon my entry to the room today and is alert and oriented to self only today. She is maintaining her oxygen saturation and is not requiring supplemental oxygen at this time. She is a very high fall risk and cannot care for herself adequately in the independent setting and requires and recuing that her family cannot provide currently. She does not appear to have any pain distress today, but she does appear to be anxious. No obvious dyspnea and according to nursing staff no other acute concerns other than they too have noted that she has appeared anxious and confused at times. Review of Systems Review of Systems: ROS unobtainable: Yes other (Pt's medical condition limiting her ability to respond appropriately.) Exam Narrative: General: In no acute distress, well nourished, lying supine, but appears confused and somewhat anxious. Head: atraumatic, no encephalopathy Eyes: Grossly intact ENT: moist mucous membranes Neck: supple, no JVD, no adenopathy, trachea midline Cardiac: Normal S1 and S2. No murmur, gallops or friction rubs, peripheral pulses intact. Respiratory: Lungs clear to auscultation, no adventitious lung sounds Gastrointestinal: soft, non-distended, non-tender, normoactive bowel sounds. : voiding without difficulty. Extremities: moves all extremities well, no edema, good ROM, strength 5/5 Skin: clean, dry, intact. No wounds or lesions. Neuro: Alert and oriented to self at current time, no focal neuro deficits. Psych: Appears anxious and states, I'm confused. Objective Data Vital Signs Vital Signs: Vital Signs - 24 hr 06/12/23 14:29 06/12/23 15:19 06/12/23 22:34 Temperature 97.0 F L 97.2 F L Pulse Rate 86 98 84 Respiratory Rate 18 18 18 Blood Pressure 151/98 H 139/60 Pulse Oximetry 95 97 06/13/23 06:15 Temperature 97.7 F Pulse Rate 82 Respiratory Rate 18 Blood Pressure 154/97 H Pulse Oximetry 96 Intake/Output Intake/Output: Intake & Output 06/10/23 06/11/23 06/12/23 06/13/23 23:59 23:59 23:59 23:59 Intake Total 3170 3646 2320 880 Balance 3170 3646 2320 880 Meds/Results Medications: Active Medications Generic Name Dose Route Start Last Admin Trade Name Freq PRN Reason Stop Dose Admin Acetaminophen 650 mg 06/10/23 00:17 06/11/23 15:00 Acetaminophen 325 Mg Tablet PO 650 mg Q4H PRN Administration Mild Pain (1-3) or Fever Albuterol 2 puff 06/11/23 15:17 06/12/23 14:29 Albuterol Sulfate (*Sp) Aerosol 1 Puff INHALATION 2 puff Q6H PRN Administration Shortness Of Breath Or Wheezing Amlodipine Besylate 5 mg 06/12/23 09:00 06/13/23 09:41 Amlodipine Besylate 5 Mg Tablet PO 5 mg DAILY FELICIA Administration Aspirin 81 mg 06/12/23 09:00 06/13/23 09:41 Aspirin 81 Mg En
[2023-06-13 14:47] VITALS: BP 130/82; PULSE 100; RESP 18; TEMP 36.1; O2SAT 98
[2023-06-13 20:12] LABS: Appearance Urine Cloudy (Clear); Bacteria Urine 4+ /hpf; Bilirubin Urine Negative (Negative); Blood Urine Negative (Negative); Color Urine Yellow (Yellow); Glucose Urine UA Negative (Negative); Ketones Urine Trace mg/dL (Negative); Leukocyte Esterase Ur Trace LEU/UL (Negative); Need Manual Microscopic Reviewed; Nitrate Urine Negative (Negative); Non Pathogenic Casts 0-2; Protein Urine Negative (Negative); Specific Grav Ur 1.021 (1.001-1.035); pH Urine 5.5 (5.0-9.0)
[2023-06-13 20:15] LABS: Add Urine Microscopic? YES
[2023-06-13 20:21] VITALS: BP 133/80; PULSE 93; RESP 18; TEMP 36.6; O2SAT 97
[2023-06-13 20:22] LABS: Squamous Epithelial Cell Urine Few /hpf (Few); WBC Urine 0-5 /hpf
[2023-06-13] MEDS: REMDESIVIR 100 MG/NS 250 ML 100 MG/250 ML BAG 250 MG IVPB (21:05)
[2023-06-13] MEDS: DONEPEZIL HCL 5 MG TABLET PO (21:05)
[2023-06-13] MEDS: SODIUM CHLORIDE 0.9% IV 1,000 ML 75 ML IV CONT (21:08)
[2023-06-14 04:14] VITALS: BP 128/71; PULSE 89; RESP 18; TEMP 36.9; O2SAT 96
[2023-06-14 05:52] LABS: Basophils Percent Auto 0.4 % (0.2-1.2); Eosinophils Absolute Auto 0.3 K/mm3 (0-0.3); Eosinophils Percent Auto 3.7 % (0-4.4); Hematocrit 38.5 % (37.0-47.0); Hemoglobin 12.2 g/dL (12.0-15.0); Immature Granulocyte Absolute 0.07 K/mm3 (0.00-0.031); Lymphocytes Absolute Auto 1.91 K/mm3 (0.9-3.2); Mean Corpuscular HGB Conc 31.7 g/dl (32-36); Mean Corpuscular Hemoglobin 28.4 pg (26-34); Mean Corpuscular Volume 89.7 fl (80-100); Mean Platelet Volume 10.5 fl (7.4-10.4); Neutrophils Percent Auto 54.9 % (45.5-73.1); Platelet Count Result 164 k/mm3 (150-375); Red Blood Count 4.29 M/mm3 (4.2-5.4); Red Cell Distribution Width 14.5 % (11.5-14.5); White Blood Count 7.3 K/mm3 (4.5-10.0)
[2023-06-14 06:01] LABS: Alanine Aminotransferase 12 U/L (6-35); Albumin Level 3.2 g/dL (3.5-5.1); Alkaline Phosphatase 104 U/L (38-126); Anion Gap 8 mmol/L (8-16); Aspartate Amino Transferase 21 U/L (14-36); Bilirubin,Total 0.4 mg/dL (0.2-1.3); Blood Urea Nitrogen 13 mg/dL (7-17); Calcium 8.2 mg/dL (8.4-10.2); Carbon Dioxide 25 mmol/L (22-30); Chloride 102 mmol/L (98-107); Estimated CRCL calculation 37 ml/min; Estimated Glomerular Filt Rate > 60; Glucose 95 mg/dL (65-110); Potassium 3.4 mmol/L (3.4-5.0); Sodium 135 mmol/L (137-145)
[2023-06-14] MEDS: LEVOTHYROXINE SODIUM 88 MCG TABLET PO (06:24)
[2023-06-14] MEDS: ENOXAPARIN 40 MG/0.4 ML SYRINGE SUB-Q (09:21)
[2023-06-14] MEDS: ASPIRIN 81 MG ENTERIC TABLET PO (09:21)
[2023-06-14] MEDS: DULoxetine HCL 60 MG CAPSULE.DR PO (09:21)
[2023-06-14] MEDS: amLODIPine BESYLATE 5 MG TABLET PO (09:21)
--- NOTE | 2023-06-14 12:38 | PC.NURSE ---
Per Hospitalist, ok to leave out IV and stop fluids at this time.
--- NOTE | 2023-06-14 12:43 | PM.IMPN ---
Progress Note: A&P Assessment and Plan (1) COVID-19: Code(s): U07.1 - COVID-19 Status: Acute Assessment and Plan: Remdesivir completed. Patient much improved Supportive care as needed. (2) Confusion: Code(s): R41.0 - Disorientation, unspecified Status: Acute Assessment and Plan: A&O X4 Labs improved and unremarkable Fall precautions Urine culture pending. (3) Weakness: Code(s): R53.1 - Weakness Status: Acute Assessment and Plan: Non-focal Generalized weakness present PT evaluated and pt requires cues for safety and Wheeled walker waiting for placement. Subjective Date/time seen: 06/14/23 12:43 Interval history: Patient is alert oriented x4 today. Patient states that she is very ready to go home. PT and OT have been working with her. Plan is to send patient to rehab facility. Care coordination working on Insurance authorization. Exam Narrative: GENERAL: Comfortable, no acute distress HENMT: moist mucous membranes EYES: EOM intact b/l NECK: no lymphadenopathy RESPIRATORY: clear to auscultation CARDIO: RRR GI: soft, nontender, bowel sounds present SKIN: no rashes EXTREMITIES: no edema, redness or tenderness Objective Data Vital Signs Vital Signs: Vital Signs - 24 hr 06/13/23 14:47 06/13/23 20:21 06/14/23 04:14 Temperature 97.0 F L 97.8 F 98.5 F Pulse Rate 100 93 89 Respiratory Rate 18 18 18 Blood Pressure 130/82 133/80 128/71 Pulse Oximetry 98 97 96 Oxygen Delivery 06/14/23 08:00 Temperature Pulse Rate Respiratory Rate Blood Pressure Pulse Oximetry Oxygen Delivery Room Air Intake/Output Intake/Output: Intake & Output 06/11/23 06/12/23 06/13/23 06/14/23 23:59 23:59 23:59 23:59 Intake Total 3646 2570 2670 140 Output Total 100 Balance 3646 2570 2570 140 Meds/Results Medications: Active Medications Generic Name Dose Route Start Last Admin Trade Name Freq PRN Reason Stop Dose Admin Acetaminophen 650 mg 06/10/23 00:17 06/11/23 15:00 Acetaminophen 325 Mg Tablet PO 650 mg Q4H PRN Administration Mild Pain (1-3) or Fever Albuterol 2 puff 06/11/23 15:17 06/12/23 14:29 Albuterol Sulfate (*Sp) Aerosol 1 Puff INHALATION 2 puff Q6H PRN Administration Shortness Of Breath Or Wheezing Amlodipine Besylate 5 mg 06/12/23 09:00 06/14/23 09:21 Amlodipine Besylate 5 Mg Tablet PO 5 mg DAILY FELICIA Administration Aspirin 81 mg 06/12/23 09:00 06/14/23 09:21 Aspirin 81 Mg Enteric Tablet PO 81 mg DAILY FELICIA Administration Donepezil HCl 5 mg 06/11/23 21:00 06/13/23 21:05 Donepezil Hcl 5 Mg Tablet PO 5 mg QHS FELICIA Administration Duloxetine HCl 60 mg 06/12/23 09:00 06/14/23 09:21 Duloxetine Hcl 60 Mg Capsule.Dr PO 60 mg DAILY FELICIA Administration Enoxaparin Sodium 40 mg 06/12/23 09:00 06/14/23 09:21 Enoxaparin 40 Mg/0.4 Ml Syringe SUB-Q 40 mg DAILY FELICIA Administration Fluticasone Propionate 1 spray 06/10/23 21:00 06/14/23 09:22 Fluticasone Propionate 0.05% Na Spr 16 Gm Btl (*Bkc) NASAL Not Given Q12HR [facility] Levothyroxine Sodium 88 mcg 06/12/23 06:30 06/14/23 06:24 Levothyroxine Sodium 88 Mcg Tablet PO 88 mcg DAILY@0630 FELICIA Administration Radiology Results: ITS Impressions Head CT 06/09/23 22:18 IMPRESSION: 1. No fracture or acute intracranial process. 2. 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 3. Age-related changes including moderate diffuse volume loss and moderate scattered white matter hypoattenuation consistent with chronic small vessel ischemic disease. Chest X-Ray 06/09/23 22:23 IMPRESSION: 1. Enlarging 1 cm left lower lobe nodule. Recommend further evaluation with chest CT. Chest CT 06/10/23 06:50 IMPRESSION: 1. 10 mm nodule in left lung lower lobe, increased from 7 mm on 07/04/2019. T
[2023-06-14 14:00] VITALS: BP 124/73; PULSE 65; RESP 16; TEMP 37.1; O2SAT 94
[2023-06-14 20:34] VITALS: BP 148/80; PULSE 96; RESP 16; TEMP 36.7; O2SAT 96
[2023-06-14] MEDS: DONEPEZIL HCL 5 MG TABLET PO (20:50)
[2023-06-14] MEDS: FLUTICASONE PROPIONATE 0.05% NA SPR 16 GM BTL (*BKC) 1 SPRAY NASAL (20:50)
[2023-06-15 04:18] VITALS: BP 148/76; PULSE 87; RESP 18; TEMP 36.8; O2SAT 97
[2023-06-15 06:02] LABS: Basophils Percent Auto 0.5 % (0.2-1.2); Eosinophils Absolute Auto 0.2 K/mm3 (0-0.3); Eosinophils Percent Auto 2.7 % (0-4.4); Hematocrit 38.4 % (37.0-47.0); Hemoglobin 12.3 g/dL (12.0-15.0); Immature Granulocyte Absolute 0.09 K/mm3 (0.00-0.031); Immature Granulocyte Percent A 1.1 % (0-0.5); Lymphocytes Absolute Auto 2.04 K/mm3 (0.9-3.2); Lymphocytes Percent Auto 24.9 % (18.3-44.2); Mean Corpuscular Hemoglobin 28.5 pg (26-34); Mean Corpuscular Volume 89.1 fl (80-100); Mean Platelet Volume 10.3 fl (7.4-10.4); Monocytes Absolute Auto 1.2 K/mm3 (0.1-0.6); Monocytes Percent Auto 14.2 % (2.6-8.5); Neutrophils Absolute Auto 4.6 K/mm3 (1.3-6.7); Neutrophils Percent Auto 56.6 % (45.5-73.1); Platelet Count Result 200 k/mm3 (150-375); Red Blood Count 4.31 M/mm3 (4.2-5.4); Red Cell Distribution Width 14.2 % (11.5-14.5); White Blood Count 8.2 K/mm3 (4.5-10.0)
[2023-06-15] MEDS: LEVOTHYROXINE SODIUM 88 MCG TABLET PO (06:11)
[2023-06-15 06:12] LABS: Alanine Aminotransferase 12 U/L (6-35); Albumin Level 3.4 g/dL (3.5-5.1); Alkaline Phosphatase 113 U/L (38-126); Anion Gap 9 mmol/L (8-16); Aspartate Amino Transferase 21 U/L (14-36); Bilirubin,Total 0.6 mg/dL (0.2-1.3); Blood Urea Nitrogen 14 mg/dL (7-17); Calcium 8.4 mg/dL (8.4-10.2); Carbon Dioxide 25 mmol/L (22-30); Chloride 101 mmol/L (98-107); Estimated CRCL calculation 37 ml/min; Estimated Glomerular Filt Rate > 60; Glucose 97 mg/dL (65-110); Potassium 3.5 mmol/L (3.4-5.0); Sodium 135 mmol/L (137-145)
[2023-06-15] MEDS: BENZONATATE 100 MG CAPSULE PO ×3 (08:40→17:08)
[2023-06-15] MEDS: amLODIPine BESYLATE 5 MG TABLET PO (08:40)
[2023-06-15] MEDS: ASPIRIN 81 MG ENTERIC TABLET PO (08:40)
[2023-06-15] MEDS: ENOXAPARIN 40 MG/0.4 ML SYRINGE SUB-Q (08:40)
[2023-06-15] MEDS: DULoxetine HCL 60 MG CAPSULE.DR PO (08:40)
[2023-06-15] MEDS: FLUTICASONE PROPIONATE 0.05% NA SPR 16 GM BTL (*BKC) 1 SPRAY NASAL (08:41)
[2023-06-15 14:00] VITALS: BP 129/85; PULSE 94; RESP 16; TEMP 36.7; O2SAT 97
--- NOTE | 2023-06-15 15:07 | PM.IMPN ---
Progress Note: A&P Assessment and Plan (1) COVID-19: Code(s): U07.1 - COVID-19 Status: Acute Assessment and Plan: Remdesivir completed. Patient much improved Supportive care as needed. (2) Confusion: Code(s): R41.0 - Disorientation, unspecified Status: Acute Assessment and Plan: A&O X4 Labs improved and unremarkable Fall precautions Urine culture pending. (3) Weakness: Code(s): R53.1 - Weakness Status: Acute Assessment and Plan: Non-focal Generalized weakness present PT evaluated and pt requires cues for safety and Wheeled walker waiting for placement. Subjective Date/time seen: 06/15/23 15:07 Interval history: Patient doing well today with no new complaints. Waiting on placement. Discussed with care coordination and possibly will new to do peer to peer once more. Will await further recommendation from care coordination as to whether patient will be discharged home or go to snf. Exam Narrative: GENERAL: Comfortable, no acute distress HENMT: moist mucous membranes EYES: EOM intact b/l NECK: no lymphadenopathy RESPIRATORY: clear to auscultation CARDIO: RRR GI: soft, nontender, bowel sounds present SKIN: no rashes EXTREMITIES: no edema, redness or tenderness Objective Data Vital Signs Vital Signs: Vital Signs - 24 hr 06/14/23 20:34 06/15/23 04:18 06/15/23 08:00 Temperature 98.1 F 98.2 F Pulse Rate 96 87 Respiratory Rate 16 18 Blood Pressure 148/80 H 148/76 H Pulse Oximetry 96 97 Oxygen Delivery Room Air 06/15/23 14:00 Temperature 98.1 F Pulse Rate 94 Respiratory Rate 16 Blood Pressure 129/85 Pulse Oximetry 97 Oxygen Delivery Intake/Output Intake/Output: Intake & Output 06/12/23 06/13/23 06/14/23 06/15/23 23:59 23:59 23:59 23:59 Intake Total 2570 2670 1080 240 Output Total 100 Balance 2570 2570 1080 240 Meds/Results Medications: Active Medications Generic Name Dose Route Start Last Admin Trade Name Freq PRN Reason Stop Dose Admin Acetaminophen 650 mg 06/10/23 00:17 06/11/23 15:00 Acetaminophen 325 Mg Tablet PO 650 mg Q4H PRN Administration Mild Pain (1-3) or Fever Albuterol 2 puff 06/11/23 15:17 06/12/23 14:29 Albuterol Sulfate (*Sp) Aerosol 1 Puff INHALATION 2 puff Q6H PRN Administration Shortness Of Breath Or Wheezing Amlodipine Besylate 5 mg 06/12/23 09:00 06/15/23 08:40 Amlodipine Besylate 5 Mg Tablet PO 5 mg DAILY FELICIA Administration Aspirin 81 mg 06/12/23 09:00 06/15/23 08:40 Aspirin 81 Mg Enteric Tablet PO 81 mg DAILY FELICIA Administration Benzocaine 1 lozenge 06/14/23 22:41 Benzocaine/Menthol (*Bkc) 18 Ea Lozenge PO PRN PRN Sore Throat Benzonatate 100 mg 06/14/23 22:45 06/15/23 13:50 Benzonatate 100 Mg Capsule PO 100 mg TID FELICIA Administration Donepezil HCl 5 mg 06/11/23 21:00 06/14/23 20:50 Donepezil Hcl 5 Mg Tablet PO 5 mg QHS FELICIA Administration Duloxetine HCl 60 mg 06/12/23 09:00 06/15/23 08:40 Duloxetine Hcl 60 Mg Capsule.Dr PO 60 mg DAILY FELICIA Administration Enoxaparin Sodium 40 mg 06/12/23 09:00 06/15/23 08:40 Enoxaparin 40 Mg/0.4 Ml Syringe SUB-Q 40 mg DAILY FELICIA Administration Fluticasone Propionate 1 spray 06/10/23 21:00 06/15/23 08:41 Fluticasone Propionate 0.05% Na Spr 16 Gm Btl (*Bkc) NASAL 1 spray Q12HR FELICIA Administration Levothyroxine Sodium 88 mcg 06/12/23 06:30 06/15/23 06:11 Levothyroxine Sodium 88 Mcg Tablet PO 88 mcg DAILY@0630 FELICIA Administration Radiology Results: ITS Impressions Head CT 06/09/23 22:18 IMPRESSION: 1. No fracture or acute intracranial process. 2. 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 3. Age-related changes including moderate diffuse volume loss and moderate scattered white matter hypoattenuation consi
--- NOTE | 2023-06-15 15:59 | PM.DS ---
DS: Admitting Diagnosis Discharge Date 06/15/23 Admitting Diagnosis COVID-19 DS: Discharge Diagnosis Discharge Diagnosis (1) COVID-19: Code(s): U07.1 - COVID-19 Status: Acute (2) Confusion: Code(s): R41.0 - Disorientation, unspecified Status: Acute (3) Weakness: Code(s): R53.1 - Weakness Status: Acute DS: Summary Hospital Course Hospital Course: 87F w/ PMH OA, depression, celiac disease, hypothyroidism, depression, CKD stage 3b presents with weakness and falls at home.? she presents to the ER on 06/10/2023 due to progressive weakness And confusion.?Labs showing Na+ 131, carbon dioxide 19, BUN 18, Creatinine 1.10, eGFR 47, procal 0.2. CBC was unremarkable. UA shown 1+ protein, trace ketones, 2+ bili, 3-[address] of the head was negative for acute intracranial process, chest x-ray showing 1 cm left lower lobe nodule, CT of the chest showing 10 mm nodule in left lower lobe. She did test positive for COVID-19 was started on remdesivir. She did not require any oxygen supplementation. She completed 5 days of remdesivir. She did not start dexamethasone due to no oxygen requirements. Patient was alert orient x3 until 06/13/2023. A provider at the time noted the patient was Aand O x1 and a repeat urine was checked which revealed possible infection although patient did not have any signs or elevated white count thus antibiotics were not conducted. When I saw her the next day she was alert oriented x4 and stated that she preferred to be discharged. When I discussed with care coordination stated that original plan was to discharge to SNF although the day prior she was not ready to be discharged. Insurance did not approve due to patient not being medically stable. When discussing with son about discharge possibilities due to patient being exam by assist and doing overall well she will be discharged into home health care service. Her labs and vital signs are stable she is medically clear for discharge at this time Time Spent with Patient Time attestation: Total time spent providing and/or coordinating discharge services: Exam Narrative: GENERAL: Comfortable, no acute distress HENMT: moist mucous membranes EYES: EOM intact b/l NECK: no lymphadenopathy RESPIRATORY: clear to auscultation CARDIO: RRR GI: soft, nontender, bowel sounds present SKIN: no rashes EXTREMITIES: no edema, redness or tenderness DS: Data Data Completed and Pending Labs on day of discharge: Labs from last 24 hours 06/15/23 05:22 WBC 8.2 RBC 4.31 Hgb 12.3 Hct 38.4 MCV 89.1 MCH 28.5 MCHC 32.0 RDW 14.2 Plt Count 200 MPV 10.3 Immature Gran % (Auto) 1.1 H Neut % (Auto) 56.6 Lymph % (Auto) 24.9 [place] % (Auto) 14.2 H Eos % (Auto) 2.7 Baso % (Auto) 0.5 Lymph # (Auto) 2.04 [place] # (Auto) 1.2 H Eos # (Auto) 0.2 Baso # (Auto) 0.0 Abs Immat Gran (auto) 0.09 H Absolute Neuts (auto) 4.6 Absolute Nucleated RBC 0.0 Nucleated RBC % 0.0 Sodium 135 L Potassium 3.5 Chloride 101 Carbon Dioxide 25 Anion Gap 9 BUN 14 Creatinine 0.80 Estim Creat Clear Calc 37 Estimated GFR > 60 Glucose 97 Calcium 8.4 Total Bilirubin 0.6 AST 21 ALT 12 Alkaline Phosphatase 113 Total Protein 6.0 L Albumin 3.4 L Discharge Plan Discharge Attending physician on discharge: Victorino Clark Consulting providers: Moe Messina Discharging Clinician: Maribell Phan Patient Disposition: Home Health Service Discharge Instructions: Discharge disposition: Take medications as prescribed Monitor blood pressures Avoid social areas, you wear a mask when in social settings Encouraged to continue with yearly vaccinations Return to the emergency department if he developed sudden shortness of breath, chest pain, nausea, vomiting, upset stomach or intractable diarrhea Return to the emergency department if you develop fever greater than 100.4 Follow-up with the primary care physi
--- NOTE | 2023-06-19 06:32 | PC.NURSE ---
Urine culture growing mixed genital zoë.
== END 2023-06-15 18:19 | disposition home health service (06) | DRG 179 ==
LOC: ANHED 23:45 → ANH3MED 06-10 01:14
PROVIDERS: Nurse Practitioner Acute Care; Nurse Practitioner Adult Health; Admitting Provider General Practice; Emergency Provider Physician Assistant; PCP Registered Nurse; Visit Provider Internal Medicine Critical Care Medicine
DX: U07.1 COVID-19 (principal); M19.90 Unspecified osteoarthritis, unspecified site; K90.0 Celiac disease; E03.9 Hypothyroidism, unspecified; F32.A Depression, unspecified; I12.9 Hypertensive chronic kidney disease with stage 1 through stage 4 chronic kidney disease, or unspecified chronic kidney disease; N18.32 Chronic kidney disease, stage 3b; R91.1 Solitary pulmonary nodule; J45.909 Unspecified asthma, uncomplicated; W19.XXXA Unspecified fall, initial encounter; Z79.82 Long term (current) use of aspirin; Z86.73 Personal history of transient ischemic attack (TIA), and cerebral infarction without residual deficits; Z87.891 Personal history of nicotine dependence; Z86.16 Personal history of COVID-19
CPT/HCPCS: 36415; 70450; 71045; 71250; 80053; 81001; 83735; 84145; 85025; 85055; 87086; 87088; 87637; 93005; 93880; 94640; 96365; 96372; 97110; 97116; 97161; 97165; 97530; 97535; 99285; A9270; G0378; J0248; J1650; J7030

== ENCOUNTER 2024-03-02 14:00 | Observation (INO) | payer OTHER, MEDICARE, SELFPAY ==
--- NOTE | ~2024-03-02 | XR_ITS ---
XR knee LT 3V DATE: 03/02/2024 15:47 INDICATION: Fall. Left knee injury, pain TECHNIQUE: 4 views COMPARISON: None FINDINGS: There is osteopenia. There is severe loss of medial compartment joint space with periarticular spurring of the medial femo ral condyle and medial tibial plateau. Mild particular spurring of the lateral tibial plateau and pat alfredo. No fracture or dislocation or joint effusion is evident. No radiopaque interarticular loose body or, calcinosis. No periosteal reaction or bone destruction. 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 IMPRESSION: Tricompartment osteoarthritis, most severe at the medial compartmen t Osteopenia No fracture or dislocation or joint effusion
--- NOTE | ~2024-03-02 | CT_ITS ---
EXAMINATION: CT brain wo con DATE: 03/02/2024 15:16 INDICATION: Fall TECHNIQUE: Computed tomography (CT) of the head was performed without intravenous contrast. The mA wa s adjusted according to patient size. Iterative reconstruction technique was employed. Exam dose: 60 5.33 mGy-cm total exam DLP. COMPARISON: 06/09/2023 CT brain FINDINGS: Stable bilateral old cerebellar hemispheric infarcts and old right frontal encephalomalacia likely due to old cerebrovascular accident. Chronic bilateral basal ganglia lacunar infarcts. These findings are unchanged since 06/09/2023. No intracranial mass lesion or hemorrhage or recent cerebrovascular accident is evident. No midline shift or mass effect. Moderate central and cortical cerebral and cerebellar volume loss consistent with patient age. No fracture or bone destruction of the cranial vault. The mastoid air cells and paranasal sinuses are normally developed and aerated. IMPRESSION: Stable chronic bilateral cerebellar hemispheric, bilateral basal ganglia and left fronta l infarcts No acute intracranial finding or skull fracture Reviewed, dictated and finalized at Location [facility]. Reviewed, dictated and finalized at location A. IMPRESSION: Stable chronic bilateral cerebellar hemispheric, bilateral basal g anglia and left frontal infarcts No acute intracranial finding or skull fracture
--- NOTE | ~2024-03-02 | CT_ITS ---
EXAMINATION: CTA chest PE protocol DATE: 03/03/2024 03:19 INDICATION: Shortness of breath. TECHNIQUE: Computed tomography angiography (CTA) of the chest was performed with 100 mL Omnipaque-350 intravenous contrast timed to evaluate the pulmonary arteries. Coronal maximum intensity projection 3D-reconstructions were created by the technologist. Automated exposure control and iterative reconst ruction technique were employed. The dose-length product was 321.02 mGy-cm. COMPARISON: Chest CT 06/10/2023 FINDINGS: The lungs demonstrate mild atelectasis. There is chronic peripheral septal thickening in th e lungs, consistent mild chronic interstitial lung disease. There is a 10 mm nodule in left lower lob e. No pleural effusion. Cardiomegaly is noted. There are coronary artery calcifications. No pericardi al effusion. There is no pulmonary embolus. There is calcified atherosclerosis of the aorta and many of the other arteries. There is a 13 mm cyst in the liver. The gallbladder is distended. There is tho racic kyphosis and moderate spondylosis. IMPRESSION: 1. No pulmonary embolus. 2. Stable 10 mm nodule in left lung lower lobe, likely benign. 3. Mild chronic interstitial lung disease. Reviewed, dictated and finalized at location A.
--- NOTE | ~2024-03-02 | XR_ITS ---
XR pelvis 1-2V DATE: 03/02/2024 15:47 INDICATION: Fall TECHNIQUE: Single AP view COMPARISON: None FINDINGS: Normal alignment at the pubic symphysis and sacroiliac joints. No pelvic fracture or bone destruction is evident. Hip joint spaces appear symmetrical relatively preserved. No fracture or dislocation of either hip is evident. IMPRESSION: No pelvic fracture is detected Reviewed, dictated and finalized at location A.
--- NOTE | ~2024-03-02 | CT_ITS ---
EXAMINATION: CT cervical spine wo con DATE: 03/02/2024 15:16 INDICATION: Fall TECHNIQUE: Computed tomography (CT) of the cervical spine was performed without intravenous contrast. Automated exposure control and iterative reconstruction technique were employed. Exam dose: 354.47 mGy-cm total exam DLP. COMPARISON: 12/23/2019 CT facial bones and cervical spine FINDINGS: Normal alignment at the atlantoaxial joints. C1 and C2 are normally aligned and the odontoid process is intact. No recent There is degenerative disc disease throughout the cervical spine, particularly severe at C4-5, C5-6, C6-7 and C7-T1. Slight anterolisthesis at C7-T1. There is degenerative change at the apophyseal joints and uncovertebral joint spurring throughout the cervical spine. No fracture or dislocation or locked facet or prevertebral soft tissue swelling is detected. No cervical mass lesion or lymphadenopathy is noted. The low included upper lung zones are clear of i nfiltrate, consolidation or mass density. IMPRESSION: Prominent cervical spondylosis; no fracture or dislocation or locked facet Reviewed, dictated and finalized at Location [facility]. Reviewed, dictated and finalized at location A. IMPRESSION: Prominent cervical spondylosis; no fracture or dislocation or lock ed facet
--- NOTE | ~2024-03-02 | XR_ITS ---
XR chest 1V DATE: 03/02/2024 15:47 INDICATION: Syncope. Fall. TECHNIQUE: AP chest COMPARISON: CTA chest 06/09/2023 AP chest FINDINGS: Approximately 9 mm left lower lung nodular density. Mild atelectasis is suggested at the lung bases. Remaining lung killian appear clear. Cardiomegaly, aortic calcification and unfolding. No hilar or mediastinal enlargement. Diffuse osteopenia. Bilateral mild glenohumeral osteoarthritis. Probable bilateral rotator cuff atrophy. IMPRESSION: Approximately 9 mm left lower lung nodular density Mild bibasilar atelectasis Cardiomegaly Aortic atherosclerosis Osteopenia Reviewed, dictated and finalized at location A.
--- NOTE | ~2024-03-02 | XR_ITS ---
XR elbow RT min 3V DATE: 03/02/2024 14:46 INDICATION: Fall. Posterior right elbow laceration. TECHNIQUE: 4 views there is a subtle radial neck fracture, without significant displacement COMPARISON: None FINDINGS: There is a probable subtle virtually nondisplaced radial neck fracture. Prominent radial he ad spurring might simulate such an appearance. Recommend clinical correlation and if necessary CT exa mination. No fat pad elevation is noted to suggest elbow joint effusion. No other fracture or dislocation is evident. Osteopenia. IMPRESSION: Subtle virtually nondisplaced radial neck fracture versus prominent radial head spurring; no elbow joint effusion is evident. Clinical correlation is advised. CT examination may be more definitive, if clinically indicated Reviewed, dictated and finalized at location A. IMPRESSION: Subtle virtually nondisplaced radial neck fracture versus prominent radial head spurring; no elbow joint effusion is evident. Clinical correlation is advised. CT examination may be more definitive, if clin ically indicated
[2024-03-02 14:08] VITALS: BP 137/68; PULSE 70; RESP 16; TEMP 36.6; O2SAT 96
[2024-03-02] MEDS: SODIUM CHLORIDE 0.9% IV 1,000 ML 999 ML IV CONT ×2 (16:02→22:30)
[2024-03-02 16:43] LABS: Influenza A QL RT-PCR Negative (Negative); Influenza B QL RT-PCR Negative (Negative); RSV RNA, RT-PCR Negative (Negative); SARS-CoV-2 RNA PCR Negative (Negative)
[2024-03-02 17:57] LABS: Basophils Absolute Auto 0.1 K/mm3 (0.0-0.1); Basophils Percent Auto 0.4 % (0.2-1.2); Eosinophils Absolute Auto 0.1 K/mm3 (0-0.3); Eosinophils Percent Auto 0.7 % (0-4.4); Hematocrit 40.9 % (37.0-47.0); Hemoglobin 12.9 g/dL (12.0-15.0); Immature Granulocyte Absolute 0.07 K/mm3 (0.00-0.031); Immature Granulocyte Percent A 0.5 % (0-0.5); Lymphocytes Absolute Auto 1.71 K/mm3 (0.9-3.2); Lymphocytes Percent Auto 12.7 % (18.3-44.2); Mean Corpuscular HGB Conc 31.5 g/dl (32-36); Mean Corpuscular Hemoglobin 29.1 pg (26-34); Mean Corpuscular Volume 92.3 fl (80-100); Mean Platelet Volume 10.7 fl (7.4-10.4); Monocytes Absolute Auto 1.2 K/mm3 (0.1-0.6); Monocytes Percent Auto 8.6 % (2.6-8.5); Neutrophils Absolute Auto 10.4 K/mm3 (1.3-6.7); Neutrophils Percent Auto 77.1 % (45.5-73.1); Platelet Count Result 178 k/mm3 (150-375); Red Blood Count 4.43 M/mm3 (4.2-5.4); Red Cell Distribution Width 14.2 % (11.5-14.5); White Blood Count 13.4 K/mm3 (4.5-10.0)
[2024-03-02 18:00] VITALS: BP 157/80; PULSE 88; RESP 19; O2SAT 99
[2024-03-02 18:29] LABS: Add Urine Microscopic? YES; Appearance Urine Clear (Clear); Bacteria Urine None Seen /hpf; Bilirubin Urine Negative (Negative); Blood Urine Negative (Negative); Color Urine Yellow (Yellow); Glucose Urine UA Negative (Negative); Ketones Urine Trace mg/dL (Negative); Leukocyte Esterase Ur Negative LEU/UL (Negative); Need Manual Microscopic Reviewed; Nitrate Urine Negative (Negative); Protein Urine Trace mg/dL (Negative); RBC Urine 0-2 /hpf (0-2); Squamous Epithelial Cell Urine None Seen /hpf (Few); Urobilinogen Urine 0.2 mg/dL (<2.0); WBC Urine 0-5 /hpf (0-3)
[2024-03-02 19:04] VITALS: BP 155/100; PULSE 87; RESP 20; O2SAT 100
--- NOTE | 2024-03-02 19:06 | ED.GENADULT ---
HPI - General Adult General Chief complaint: Fall Stated complaint: fall Time Seen by Provider: 03/02/24 14:32 History of Present Illness HPI narrative: This is an 88-year-old female with dementia presenting after a fall. The patient does not remember the event other than she woke up on her back. She is complaining of pain to the back of her head, her left knee, and her right elbow. Patient denies chest pain difficulty breathing abdominal pain urinary symptoms nausea vomiting or diarrhea. Related Data Home Medications Medication Instructions Recorded Confirmed aspirin 81 mg tablet,delayed 81 mg PO DAILY 10/16/19 12/19/23 release (Adult Aspirin Regimen) carvedilol 6.25 mg tablet 6.25 mg PO Q12H 10/16/19 12/19/23 levothyroxine 88 mcg capsule 88 mcg PO DAILY 10/16/19 12/19/23 duloxetine 60 mg capsule,delayed 60 mg PO DAILY 11/03/19 12/19/23 release evolocumab 140 mg/mL subcutaneous See Rx Instructions .Route .COMPLEX 11/03/19 12/19/23 pen injector (Anna Dodge) amlodipine 5 mg tablet 5 mg PO DAILY 10/04/22 12/19/23 donepezil 5 mg tablet 5 mg PO QHS 10/04/22 12/19/23 albuterol sulfate 90 mcg/actuation 2 puff inhalation Q6H PRN 06/10/23 12/19/23 aerosol inhaler Shortness Of Breath Or Wheezing fluticasone 100 mcg-salmeterol 50 1 inh inhalation Q12H 12/19/23 12/19/23 mcg/dose blistr powdr for inhalation nitroglycerin 0.4 mg sublingual 0.4 mg sublingual Q5M PRN 12/19/23 12/19/23 tablet Allergies Allergy/AdvReac Type Severity Reaction Status Date / Time codeine Allergy Unknown Hallucinati Verified 12/19/23 11:39 ng Penicillins Allergy Unknown Swelling Verified 12/19/23 11:39 of Lip/Tongue/Throat PMFSH Past Medical History Medical History Arthritis of knee, left COVID-19 Heart disease History of depression History of hypertension History of hypothyroidism Stroke Surgical History Surgical History Status post right partial knee replacement Family History Family History Sibling Diabetes mellitus Heart disease Social History Social History Smoking status: Former smoker Alcohol intake: never Substance use: never Do You Feel Safe in your Home?: Yes Lack of Transportation: No Lack of Food: Never True Concerned About Future Housing: No Difficulty Paying Gas/Electric Bills: No Difficulty Paying for Meds: No Currently Unemployed: No Difficulty w/ Childcare or Family Care: No Living arrangements: with family Occupation/Education: retired Gender identity (if verbalized by the patient): Female Spiritual care concerns: No Exam Narrative: APPEARANCE: No apparent distress. Head: atraumatic. EYES: EOMI, NOSE: Atraumatic NECK: Trachea midline RESPIRATORY: No increased rate of breathing clear auscultation CARDIOVASCULAR: RRR, ABDOMINAL: Non-distended MUSCULOSKELETAl: Head to toe trauma exam revealed some pain to the back of the head, small laceration over the right elbow and some pain on active and passive range of motion the left knee. NEURO: Alert. Moving 4/4 extremities to command SKIN:: Warm, dry. Normal color PSYCHIATRIC: Normal affect Course Vital Signs Vital signs: Vital Signs Temperature 36.6 C 03/02/24 14:08 Pulse Rate 70 03/02/24 14:08 Respiratory Rate 16 03/02/24 14:08 Blood Pressure 137/68 03/02/24 14:08 Pulse Oximetry 96 03/02/24 14:08 Oxygen Delivery Room Air 03/02/24 14:08 Temperature 36.6 C 03/02/24 14:08 Pulse Rate 95 03/03/24 00:01 Respiratory Rate 27 H 03/03/24 00:01 Blood Pressure 155/75 H 03/03/24 00:01 Pulse Oximetry 99 03/03/24 00:01 Oxygen Delivery Nasal Cannula 03/02/24 23:07 Oxygen Flow Rate 2 03/02/24 23:07 Medical Decision Making MDM Narrativ
--- NOTE | 2024-03-02 19:11 | ECG_ITS ---
Test Date: 2024-03-02 19:34:49 Measurements Intervals [place] Rate: 84 P: 59 CT: 189 QRS: 12 QRSD: 75 T: 46 QT: 343 QTc: 407 Interpretive Statements SINUS RHYTHM WITH OCCASIONAL SUPRAVENTRICULAR PREMATURE COMPLEXES BASELINE ARTIFACT- I, II, III, AVR, AVL, AVF, V1-V6 BORDERLINE ECG No previous ECG available for comparison Electronically Signed On 03-02-2024 20:38:38 CDT by Juan Lock D.O.
[2024-03-02 19:57] LABS: Troponin I < 0.012 ng/mL (0.000-0.034)
[2024-03-02 20:03] LABS: NT Pro B Type Natriuretic Pept 471 pg/mL (19.9-100)
[2024-03-02 20:20] LABS: Alanine Aminotransferase 18 U/L (6-35); Albumin Level 3.6 g/dL (3.5-5.1); Alkaline Phosphatase 106 U/L (38-126); Anion Gap 6 mmol/L (4-12); Aspartate Amino Transferase 27 U/L (14-36); Bilirubin,Total 0.4 mg/dL (0.2-1.3); Blood Urea Nitrogen 19 mg/dL (7-17); Calcium 8.5 mg/dL (8.4-10.2); Carbon Dioxide 25 mmol/L (22-30); Chloride 103 mmol/L (98-107); Estimated CRCL calculation 30 ml/min; Estimated Glomerular Filt Rate 52; Glucose 105 mg/dL (65-110); Potassium 4.1 mmol/L (3.4-5.0); Sodium 134 mmol/L (137-145)
[2024-03-02] MEDS: MECLIZINE HCL 25 MG TABLET PO (21:19)
--- NOTE | 2024-03-02 21:21 | PC.NURSE ---
Pt became dizzy when getting into w/c to exit ER, placed back in stretcher, EDP Dr Mariano made aware. Medication given as ordered for dizziness.
[2024-03-02 21:22] VITALS: BP 166/95; PULSE 88; RESP 19; O2SAT 96
[2024-03-02 22:09] VITALS: BP 179/96; PULSE 82; RESP 22; O2SAT 100
[2024-03-02] MEDS: PROCHLORPERAZINE EDISYLATE 10 MG/2 ML VIAL IV PUSH (22:29)
[2024-03-02] MEDS: diphenhydrAMINE HCl INJ 50 MG/ML VIAL 25 MG IV PUSH (22:29)
--- NOTE | 2024-03-02 22:57 | PC.NURSE ---
This RN answered pt call light. Pt SOB, speaking in short sentences. When talking, 02 dropped to 75% with good pleth. Pt placed on 2L NC. 02 now 96% with good pleth. MD Mariano notified of event.
[2024-03-02 23:07] VITALS: O2SAT 96
[2024-03-03] VITALS (8 sets, daily range): BP systolic 131–155; BP diastolic 58–90; PULSE 74–95; RESP 18–30; TEMP 36.8–37.2; O2SAT 94–100; BMI 26.3
--- NOTE | 2024-03-03 00:18 | PM.IMHP ---
H&P: HPI History of Present Illness Date/Time: 03/03/24 00:18 Chief Complaint: fall Narrative: This is an 88-year-old female with past medical history significant for hypertension, dementia, asthma, hypothyroidism, coronary artery disease. Patient resides at skilled nursing facility was brought for evaluation after she had a fall. Preliminary workup has been essentially nonrevealing. However patient upon standing became very dizzy unable to stand. Patient has been placed in observation for further evaluation management and treatment. EXAMINATION: CT brain wo con DATE: 03/02/2024 15:16 INDICATION: Fall TECHNIQUE: Computed tomography (CT) of the head was performed without intravenous contrast. The mA was adjusted according to patient size. Iterative reconstruction technique was employed. Exam dose: 605.33 mGy-cm total exam DLP. COMPARISON: 06/09/2023 CT brain FINDINGS: Stable bilateral old cerebellar hemispheric infarcts and old right frontal encephalomalacia likely due to old cerebrovascular accident. Chronic bilateral basal ganglia lacunar infarcts. These findings are unchanged since 06/09/2023. No intracranial mass lesion or hemorrhage or recent cerebrovascular accident is evident. No midline shift or mass effect. Moderate central and cortical cerebral and cerebellar volume loss consistent with patient age. No fracture or bone destruction of the cranial vault. The mastoid air cells and paranasal sinuses are normally developed and aerated. IMPRESSION: Stable chronic bilateral cerebellar hemispheric, bilateral basal ganglia and left frontal infarcts No acute intracranial finding or skull fracture XR chest 1V DATE: 03/02/2024 15:47 INDICATION: Syncope. Fall. TECHNIQUE: AP chest COMPARISON: CTA chest 06/09/2023 AP chest FINDINGS: Approximately 9 mm left lower lung nodular density. Mild atelectasis is suggested at the lung bases. Remaining lung killian appear clear. Cardiomegaly, aortic calcification and unfolding. No hilar or mediastinal enlargement. Diffuse osteopenia. Bilateral mild glenohumeral osteoarthritis. Probable bilateral rotator cuff atrophy. IMPRESSION: Approximately 9 mm left lower lung nodular density Mild bibasilar atelectasis Cardiomegaly Aortic atherosclerosis Osteopenia Review of Systems Review of Systems: dizziness, generalized weakness PMFSH Past Medical History Medical History Arthritis of knee, left COVID-19 Heart disease History of depression History of hypertension History of hypothyroidism Stroke Surgical History Surgical History Status post right partial knee replacement Family History Family History Sibling Diabetes mellitus Heart disease Social History Social History Smoking status: Former smoker Alcohol intake: never Substance use: never Substance use type: does not use Do You Feel Safe in your Home?: Yes Lack of Transportation: No Lack of Food: Never True Current Housing: I Do Not Have Housing Concerned About Future Housing: No Difficulty Paying Gas/Electric Bills: No Difficulty Paying for Meds: No Currently Unemployed: No Education: Grade School Difficulty w/ Childcare or Family Care: No Living arrangements: with family Occupation/Education: retired Gender identity (if verbalized by the patient): Female Spiritual care concerns: No Meds Home Medications and Allergies Home Medications Medication Instructions Recorded Confirmed Type aspirin 81 mg tablet,delayed 81 mg PO DAILY 10/16/19 03/03/24 History release (Adult Aspirin Regimen) carvedilol 6.25 mg tablet 6.25 mg PO Q12H 10/16/19 03/03/24 History levothyroxine 88 mcg capsule 88 mcg PO DAILY 10/16/19 03/03/24 History duloxet
--- NOTE | 2024-03-03 01:56 | ADMGEN ---
This patient, Mary Kate Cobian, was admitted to [facility] Surg Room 333-01. Patient/family oriented to hospital policies and general routines including ID bracelet, bed and alarms, visiting hours, pain management, procedures, bathroom and other care routines, personal items, smoking policy, room service/diet, and visiting hours. Information on how to activate the Rapid Response Team has been discussed. Patient/Family are encouraged to report perceived risks to care and to ask questions if they do not understand what they are told or what they should do.
[2024-03-03] MEDS: LEVOTHYROXINE SODIUM 88 MCG TABLET PO (07:41)
[2024-03-03] MEDS: amLODIPine BESYLATE 5 MG TABLET PO (09:06)
[2024-03-03] MEDS: DULoxetine HCL 60 MG CAPSULE.DR PO (09:06)
[2024-03-03] MEDS: carvediloL 6.25 MG TABLET PO (09:06)
[2024-03-03] MEDS: ASPIRIN 81 MG ENTERIC TABLET PO (09:07)
--- NOTE | 2024-03-03 12:44 | PM.DS ---
DS: Admitting Diagnosis Discharge Date 03/03/2024 Admitting Diagnosis fall with head trauma and dizziness DS: Discharge Diagnosis Discharge Diagnosis (1) Fall: Code(s): W19.XXXA - Unspecified fall, initial encounter Status: Acute Assessment and Plan: Fall from standing height March 02 with etiology uncertain Hx is more c/w fall with LOC due to head trauma rather than syncope Discussed with family that medications (especially antidepressants) may increase the risk of falling in older adults (2) Head trauma: Code(s): S09.90XA - Unspecified injury of head, initial encounter Status: Acute Assessment and Plan: She remembers falling and was unconscious after she hit her head Is likely that she experienced a concussion with LOC (3) Elbow laceration: Code(s): S51.019A - Laceration without foreign body of unspecified elbow, initial encounter Status: Acute Assessment and Plan: No sign of infection Needs follow-up with primary care (4) Vertigo: Code(s): R42 - Dizziness and giddiness Status: Acute Assessment and Plan: Chronic and intermittent. Likely aggravated by head trauma March 02. (5) Gait abnormality: Code(s): R26.9 - Unspecified abnormalities of gait and mobility Status: Acute Assessment and Plan: This is chronic and worsened by her recent head trauma and intermittent for. She has a walker at home and wheelchair for longer distances. (6) Degenerative disc disease: Status: Acute Assessment and Plan: Chronic (7) History of completed stroke: Code(s): Z86.73 - Personal history of transient ischemic attack (TIA), and cerebral infarction without residual deficits Status: Acute DS: Summary Hospital Course Hospital Course: Admitted March 02 after fall from standing height at assisted living [facility] facility. She was standing with her walker suddenly fell down. She had no dizziness lightheaded sweats palpitations chest is breath preceding the fall. Heart on concrete when she felt when she awakened the ambulance and the crew was preparing her for transport. She had no incontinence or seizure-like activity per S. No visual changes. Her only medication change was crease of her Cymbalta dose on March 01. She was dizzy and unable to stand wanted evaluated emergency department. Cbc or white count 15325 but without immature forms on differential. One hundred thirty-four BUN 19 creatinine 1.0 other electrolytes within normal limits. Liver functions were within normal limits. Albumin 6. BNP was 471. Urinalysis sent trace ketones was otherwise unremarkable. Testing for influenza a and B RSV and COVID-[address] Head IMPRESSION: Stable chronic bilateral cerebellar hemispheric, bilateral basal ganglia and left frontal infarcts No acute intracranial finding or skull fracture EKG Measurements Intervals [place] Rate: 84 P: 59 NV: 189 QRS: 12 QRSD: 75 T: 46 QT: 343 QTc: 407 Interpretive Statements SINUS RHYTHM WITH OCCASIONAL SUPRAVENTRICULAR PREMATURE COMPLEXES BASELINE ARTIFACT- I, II, III, AVR, AVL, AVF, V1-V6 BORDERLINE ECG No previous ECG available for comparison Electronically Signed On 03-02-2024 20:38:38 CDT by Juan Lock D.O. EXAMINATION: CTA chest PE protocol DATE: 03/03/2024 03:19 INDICATION: Shortness of breath. TECHNIQUE: Computed tomography angiography (CTA) of the chest was performed with 100 mL Omnipaque-350 intravenous contrast timed to evaluate the pulmonary arteries. Coronal maximum intensity projection 3D-reconstructions were created by the technologist. Automated exposure control and it
== END 2024-03-03 14:00 ==
LOC: ANHED 03-03 00:36 → ANH3MEDSUR 03-03 04:09
PROVIDERS: Admitting Provider Internal Medicine; Emergency Provider Emergency Medicine; PCP Registered Nurse; Visit Provider Internal Medicine
DX: S51.011A Laceration without foreign body of right elbow, initial encounter (principal); S09.90XA Unspecified injury of head, initial encounter; M25.562 Pain in left knee; W18.30XA Fall on same level, unspecified, initial encounter; R42 Dizziness and giddiness; R26.9 Unspecified abnormalities of gait and mobility; I10 Essential (primary) hypertension; E03.9 Hypothyroidism, unspecified; F03.90 Unspecified dementia, unspecified severity, without behavioral disturbance, psychotic disturbance, mood disturbance, and anxiety; J45.909 Unspecified asthma, uncomplicated; I25.10 Atherosclerotic heart disease of native coronary artery without angina pectoris; F32.A Depression, unspecified; Z86.73 Personal history of transient ischemic attack (TIA), and cerebral infarction without residual deficits; Z96.651 Presence of right artificial knee joint; Z87.891 Personal history of nicotine dependence; Z79.82 Long term (current) use of aspirin; Z79.51 Long term (current) use of inhaled steroids; Z20.822 Contact with and (suspected) exposure to COVID-19
CPT/HCPCS: 36415; 70450; 71045; 71275; 72125; 72170; 73080; 73562; 80053; 81001; 83880; 84484; 85025; 85055; 87637; 93005; 96361; 96374; 96375; 97161; 99285; A9270; G0378; J0780; J1200; J7030; Q9967